=== PATIENT | female | born 1940 | race Caucasian/White ===

== ENCOUNTER → 2017-01-28 | Outpatient (CLI) | payer MEDICARE, OTHER ==
--- NOTE | 2017-01-28 11:09 | REPMRS ---
Patient History The patient states she has not had a clinical breast exam in over a year. Patient is postmenopausal. No known family history of cancer. Digital Woman Screen Mammo: January 28, 2017 - Exam #: [id number] Bilateral CC and MLO view(s) were taken. Technologist: Susannah Serrato, Technologist Prior study comparison: January 17, 2016, digital woman screen mammo performed at [facility] to [facility]. August 31, 2014, digital woman screen mammo performed at [facility] to [facility]. FINDINGS: There are scattered fibroglandular densities. There has been no change in the appearance of the mammogram from the prior studies. There is a mild amount of residual fibroglandular tissue which is fairly symmetric. There is no interval development of dominant mass, architectural distortion, or clustered microcalcification suggestive of malignancy. ASSESSMENT: BI-RADS/ACR category 1 mammogram. Negative. Recommendation Routine screening mammogram in 1 year (for women over age 40). This mammogram was interpreted with the aid of an FDA-approved computer-aided dectection system. Electronically Signed By: Donnell Ernandez MD 01/28/17 [id number]
== END ==
LOC: M WHC 10:35
PROVIDERS: ATTEND Family Medicine
DX: Z12.31 Encounter for screening mammogram for malignant neoplasm of breast (principal)

== ENCOUNTER → 2018-01-29 | Outpatient (CLI) | payer MEDICARE, OTHER | LOC: M WHC 11:25 | DX: Z12.31 Encounter for screening mammogram for malignant neoplasm of breast (principal); Z78.0 Asymptomatic menopausal state | CPT/HCPCS: 77067 ==

== ENCOUNTER 2018-03-10 08:30 | Day surgery (SDC) | payer MEDICARE, OTHER ==
[2018-03-10] MEDS: NS 1,000 ML IV (10:06)
[2018-03-10] MEDS ORDERED: LIDOCAINE 2% INJ 100 MG/5 ML SDV (FOR ANES.) As Ordered (10:44)
[2018-03-10] MEDS ORDERED: PROPOFOL 200 MG/20 ML VIAL As Ordered (10:44)
[2018-03-10] MEDS ORDERED: LIDOCAINE 2% JELLY 30 ML As Ordered (11:00)
== END 2018-03-10 11:24 | disposition home or self-care (01) ==
LOC: M OPP 08:30
DX: K64.5 Perianal venous thrombosis (principal); K64.8 Other hemorrhoids; K57.30 Diverticulosis of large intestine without perforation or abscess without bleeding; I10 Essential (primary) hypertension; E03.9 Hypothyroidism, unspecified; E78.00 Pure hypercholesterolemia, unspecified; M12.9 Arthropathy, unspecified; K21.9 Gastro-esophageal reflux disease without esophagitis; F32.9 Major depressive disorder, single episode, unspecified; Z79.899 Other long term (current) drug therapy; Z79.01 Long term (current) use of anticoagulants; Z86.711 Personal history of pulmonary embolism; Z83.3 Family history of diabetes mellitus; Z90.710 Acquired absence of both cervix and uterus
CPT/HCPCS: 45378

== ENCOUNTER 2019-01-31 19:54 | Emergency (ER) | payer MEDICARE, OTHER ==
[~2019-01-31] VITALS: Ht 167.6 cm; Wt 86.4 kg
[~2019-01-31 19:54] MED LIST changes: -ROSU10TA5 PO; +VITA500T17 PO; -VITA500T53 PO
[2019-01-31] MEDS ORDERED: ROSU10TA5 PO (20:05)
--- NOTE | 2019-01-31 22:16 | REPVR ---
EXAM: US Duplex Left Lower Extremity Veins, Limited EXAM DATE/TIME: 01/31/2019 9:39 PM CLINICAL HISTORY: 78 years old, female; Pain; Leg, lower and other: Knee posterior lower upper thigh to upper calf; Left; Additional info: Leg pain TECHNIQUE: Imaging protocol: Real-time Duplex ultrasound of the Left Lower Extremity with 2-D hartmann scale, color Doppler flow and spectral waveform analysis. Limited exam focused on the left lower extremity veins. COMPARISON: No relevant prior studies available. FINDINGS: Left deep veins: Unremarkable. The common femoral, femoral, proximal profunda femoral and popliteal veins are patent without thrombus. Normal Doppler waveforms. Normal compressibility and/or augmentation response. Left superficial veins: Unremarkable. Saphenofemoral junction is patent without thrombus. Soft tissues: Complex cyst medial popliteal fossa measures 4.2 x 1.6 x 2.8 cm. IMPRESSION: Complex cyst medial popliteal fossa measures 4.2 x 1.6 x 2.8 cm. No DVT. Electronically signed by: Deuce Darden On 01/31/2019 22:16:03 PM
[2019-01-31 22:44] VITALS: BP 137/74
== END 2019-01-31 22:49 | disposition home or self-care (01) ==
LOC: M ED 19:54
DX: M71.22 Synovial cyst of popliteal space [Baker], left knee (principal); M79.605 Pain in left leg; M25.571 Pain in right ankle and joints of right foot; E03.9 Hypothyroidism, unspecified; I10 Essential (primary) hypertension; Z86.711 Personal history of pulmonary embolism; Z86.718 Personal history of other venous thrombosis and embolism; Z79.01 Long term (current) use of anticoagulants; Z79.899 Other long term (current) drug therapy

== ENCOUNTER → 2019-01-31 | Outpatient (CLI) | payer MEDICARE, OTHER ==
[~2019-01-31] MED LIST: CALC600T31 PO; ESCI10TA2 PO; FOLI400T PO; LEVO75TA4 PO; MULT1TAB18 PO; OMEP20CA3 PO; ROSU10TA5 PO; TRIA37.5 PO; VITA100067 PO; VITA500T53 PO; WARF-23 PO
--- NOTE | 2019-02-01 07:15 | REP ---
RIGHT ANKLE SERIES: Four views of the right ankle were performed. On one of the views there is subtle linear lucency in the medial malleolus. I feel this is likely artifactual and not indicative of a fracture. There appears to be mild lateral soft tissue swelling. I see no other evidence of acute fracture or dislocation. The ankle mortise is anatomic. IMPRESSION: Subtle linear lucency, medial malleolus is likely artifactual and is likely not indicative of a fracture. Please correlate clinically. Electronically Signed by Donnell Ernandez MD 02/01/2019 09:21 A
== END ==
LOC: M ADAMS 12:38
PROVIDERS: ATTEND Physician Assistant Medical
DX: M25.571 Pain in right ankle and joints of right foot (principal)

== ENCOUNTER → 2019-02-23 | Outpatient (CLI) | payer MEDICARE, OTHER ==
[~2019-02-23] MED LIST changes: +ROSU10TA5 PO
--- NOTE | 2019-02-23 15:21 | REPMRS ---
Patient History The patient states she has not had a clinical breast exam in over a year. Patient is postmenopausal. No known family history of cancer. No Hormone Replacement Therapy Digital Woman Screen Mammo: February 23, 2019 - Exam #: [id number] Bilateral CC and MLO view(s) were taken. Technologist: Susannah Serrato, Technologist Prior study comparison: January 29, 2018, digital woman screen mammo performed at [facility]. January 28, 2017, digital woman screen mammo performed at [facility]. January 17, 2016, digital woman screen mammo performed at [facility]. FINDINGS: The breast tissue is almost entirely fat. There has been no change in the appearance of the mammogram from the prior studies. There is no interval development of dominant mass, architectural distortion, or clustered microcalcification typical of malignancy. 3-D tomosynthesis shows no additional findings. Assessment: BI-RADS/ACR category 1 mammogram. Negative Mammogram. Recommendation Routine screening mammogram of both breasts in 1 year (for women over age 40). This patient's Lifetime Breast Cancer RIsk is estimated at 1.3 %. This mammogram was interpreted with the aid of an FDA-approved computer-aided dectection system. Electronically Signed By: Julio Patel MD 02/23/19 [id number]
== END ==
LOC: M WHC 14:04
PROVIDERS: ATTEND Family Medicine
DX: Z12.31 Encounter for screening mammogram for malignant neoplasm of breast (principal)

== ENCOUNTER 2019-05-05 12:43 | Inpatient (IN) | payer MEDICARE, OTHER ==
[~2019-05-05] VITALS: Ht 167.6 cm; Wt 88.2 kg
[2019-05-05] MEDS ORDERED: OSTETAB2 PO (12:55)
[2019-05-05] MEDS ORDERED: ACETAMINOPHEN 500 MG TAB PO ONE (14:00)
--- NOTE | 2019-05-05 14:24 | REP ---
Clinical: Status post fall with pain. Technique: AP, lateral, bilateral oblique and coned-down views of the lumbosacral spine. Comparison: MRI dated 03/23/2018. Findings: There is a compression fracture of T12 with approximately 50% loss of vertebral body height primarily involving the lower half of the vertebral body. No obvious retropulsed fracture fragment is appreciated and alignment is maintained. Advanced degenerative disc osteophyte complex at L4-5 and L5-L1 includes endplate sclerosis, hypertrophic facet changes and osteophyte formation. Remainder examination demonstrates moderate multilevel degenerative changes. Impression: 1. Compression fracture of T12 of indeterminate age. 2. Moderate/advanced multilevel degenerative spondylosis. Electronically Signed by Matthew Mazariegos MD 05/05/2019 02:17 P
[2019-05-05 15:15] LABS: INR 2.04; PROTHROMBIN TIME 22.8 SECONDS (11.8-14.0)
[2019-05-05] MEDS ORDERED: LIDOCAINE 5% (LIDODERM) PATCH TD ONE (15:15)
[2019-05-05] MEDS ORDERED: oxyCODONE 5MG TAB PO ONE (15:15)
[2019-05-05] MEDS ORDERED: MORPHINE 10 MG/ML 1ML VIAL (J2270) IM ONE (17:15)
[2019-05-05] MEDS ORDERED: VITA10002 PO (17:43)
[2019-05-05] MEDS ORDERED: OYST1TAB PO (17:43)
[2019-05-05] MEDS ORDERED: VITAD1000T PO (17:43)
[2019-05-05] MEDS ORDERED: MULT-40 PO (17:43)
[2019-05-05] MEDS: NS 1,000 ML IV SCH (18:45)
--- NOTE | 2019-05-05 18:50 | HPEPDOC ---
[facility] Medical History & Physical Date of Admission May 05, 2019 Date of Service: May 05, 2019 History and Physical CHIEF COMPLAINT: s/p fall, intractable low back pain HISTORY OF PRESENT ILLNESS: Pt is 78 y/o F with PMHx of bilateral knee osteoarthritis, Hx of PE on AC by Warfarin. Pt fell at home today. She states that she fell on her back due to loosing balance. Subsequently she was not able to stand due to extreme pain. SHe denies LOC, dizziness, vertigo or lightheadedness. Denies any similar episode in the past. In the ED found to be in extreme pain with unremarkable lumbar Xray except for old T12 compression fracture. Upon my evaluation she is not moving in bed due to pain, Able to move LE no bowel or bladder incontinence. Received 8mg morphine in the ED with moderate effect. Pain is 10/10 no radiation no sensory motor deficit. Denies any N/V any respiratory distress. PAST MEDICAL HISTORY: as above PAST SURGICAL HISTORY: denies SOCIAL HISTORY: Pt is pleasant lady with family support at bedside, lives at home FAMILY HISTORY: denies ALLERGIES: Please see below. REVIEW OF SYSTEMS: 10 point negative except as above HOME MEDICATIONS: Please see below. PHYSICAL EXAMINATION: GENERAL APPEARANCE: AAOx3 moderate to severe distress due to pain HEENT: RAMIRO, EOMI no icterus no JVD no trauma CARDIOVASCULAR: S1 S2 no murmur LUNGS: clear bilat ABDOMEN: soft NT ND MUSCULOSKELETAL: tenderness on lumbar sacral spines NEUROLOGICAL: intact PSYCHIATRIC: mood affect appropriate LABORATORY DATA: See below. IMAGING: MICROBIOLOGY: Please see below. Vital Signs Date Time Temp Pulse Resp B/P (MAP) Pulse Ox O2 Delivery O2 Flow Rate FiO2 05/05/19 20:50 98.3 74 17 132/72 (92) 93 05/05/19 20:28 98.6 05/05/19 20:16 78 18 130/64 (86) 94 Room Air 05/05/19 19:47 18 05/05/19 18:00 68 18 116/60 (78) 93 Room Air 05/05/19 18:00 18 05/05/19 17:31 74 18 133/64 94 05/05/19 17:30 74 18 133/64 (87) 93 Room Air 05/05/19 17:24 Room Air 05/05/19 15:18 77 18 140/65 05/05/19 14:30 76 18 140/65 (90) 91 Room Air 05/05/19 14:15 75 18 156/90 (112) 92 Room Air 05/05/19 14:12 76 18 170/75 (106) 92 Room Air 05/05/19 13:45 82 18 160/83 (108) 92 Room Air 05/05/19 13:30 79 18 154/75 (101) 93 Room Air 05/05/19 13:15 77 18 147/74 (98) 95 Room Air 05/05/19 13:00 83 18 150/78 (102) 94 Room Air 05/05/19 12:53 98.7 05/05/19 12:47 80 18 143/68 93 Room Air Laboratory Tests 05/05/19 14:33: Prothrombin Time 22.8H, Prothromb Time International Ratio 2.04 05/05/19 19:28: Prothrombin Time 23.0H, Prothromb Time International Ratio 2.06, White Blood Count 8.7, Red Blood Count 4.00, Hemoglobin 12.8, Hematocrit 38.5, Mean Corpuscular Volume 96.3H, Mean Corpuscular Hemoglobin 32.0, Mean Corpuscular Hemoglobin Concent 33.2, Red Cell Distribution Width 14.3, Platelet Count 194, Neutrophils (%) (Auto) 81.3H, Lymphocytes (%) (Auto) 12.7L, Monocytes (%) (Auto) 5.5H, Eosinophils (%) (Auto) 0.1, Basophils (%) (Auto) 0.2, Neutrophils # (Auto) 7.1, Lymphocytes # (Auto) 1.1L, Monocytes # (Auto) 0.5, Eosinophils # (Auto) 0.0, Basophils # (Auto) 0.0, Immature Granulocyte % (Auto) 0.2, Nucleated Red Blood Cells % (auto) 0.0, Blood Urea Nitrogen 12, Creatinine 0.68, Sodium Level 140, Potassium Level 3.8, Chloride Level 106, Carbon Dioxide Level 30, Calcium Level 9.1, Aspartate Amino Transf (AST/SGOT) 26, Alanine Aminotransferase (ALT/SGPT) 26, Alkaline Phosphatase 75, Total Bilirubin 0.6, Total Protein 6.6, Albumin 3.3, Anion Gap 4L, Glomerular Filtration Rate > 60.0, Fasting Glucose 107H, Albumin/Globulin Ratio 1.00 Current Medications Medications (Trade) Dose Ordered Sig/Queenie Route PRN Reason Start Time Stop Time Status Last Admin Dose Admin Ketorolac Tromethamine (ToRADol) 30 mg Q8HP PRN IV pain 05/05/19 18:45 05/10/19 18:44 05/05/19 22:40 30 MG Sodium Chloride 1,000 ml @ 100 mls/hr Q10H IV 05/05/19 18:45 05/05/19 18:45 100 MLS/HR A/P 1-S/P Fall secondary to loosing balance, no syncope 2-Intractable lumbar spine pain Pending CT Lumbar Spine Ketorolac 30mg PRN IV Hydration Cont home meds DVT prophylaxis Vital Signs Vital Signs Date Time Temp Pulse Resp B/P (MAP) Pulse Ox O2 Delivery O2 Flow Rate FiO2 05/05/19 18:00 68 18 116/60 (78) 93 Room Air 05/05/19 12:53 98.7 Laboratory Data Labs 24H Laboratory Tests 2 05/05/19 14:33: Prothrombin Time 22.8H, Prothromb Time International Ratio 2.04 Home Medications Scheduled Calcium Carbonate (Calcium) 500 Mg Tablet, 500 MG PO QHS Cyanocobalamin (Vitamin B-12) (Vitamin B-12) 1,000 Mcg Tablet, 1,000 MCG PO QHS Escitalopram Oxalate (Escitalopram Oxalate) 10 Mg Tab, 10 MG PO DAILY Folic Acid (Folic Acid) 400 Mcg Tab, 400 MCG PO DAILY Glucosam/Davon-Msm1/C/Brian/Bosw (Osteo Bi-Flex Caplet) 1 Each Tablet, 2 TAB PO DAILY Levothyroxine Sodium (Levothyroxine Sodium) 75 Mcg Tab, 75 MCG PO DAILY Multivitamin (Multivitamins) 1 Each Tablet, 1 TAB PO QHS Omeprazole (Omeprazole) 20 Mg Cap, 20 MG PO DAILY Rosuvastatin Calcium (Rosuvastatin Calcium) 10 Mg Tab, 10 MG PO DAILY Triamterene/Hydrochlorothiazid (Triamterene-Hctz 37.5-25 mg Tb) 1 Tab Tab, 0.5 TAB PO DAILY Vitamin D (Vitamin D3) 1,000 Unit Tablet, 1,000 UNITS PO QHS Warfarin Sodium (Warfarin Sodium) 5 Mg Tab, 5 MG PO DAILY TAKES AT 1200 Allergies Coded Allergies: No Known Allergies (Verified , 03/04/18) A-FIB/CHADSVASC A-FIB History Current/History of A-Fib/PAF?: No JESSICA TINEO MD May 05, 2019 18:50
--- NOTE | 2019-05-05 19:29 | REPVR ---
EXAM: CT Lumbar Spine Without Contrast EXAM DATE/TIME: 05/05/2019 6:54 PM CLINICAL HISTORY: 78 years old, female; Injury or trauma; Fall; Initial encounter; Blunt trauma (contusions or hematomas); Additional info: S/P fall TECHNIQUE: Imaging protocol: Axial computed tomography images of the lumbar spine without intravenous contrast. Coronal and sagittal reformatted images were created and reviewed. Radiation optimization: All CT scans at this facility use at least one of these dose optimization techniques: automated exposure control; mA and/or kV adjustment per patient size (includes targeted exams where dose is matched to clinical indication); or iterative reconstruction. COMPARISON: CR Spine. Lumbosacral, complete 05/05/2019 1:58 PM FINDINGS: Vertebrae: Acute compression fracture of T12 with retropulsion of fractured elements into the spinal canal reducing the anterior posterior diameter to 11.5 mm with mild cord impingement. Dextroscoliosis lower lumbar spine. 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 Discs/Spinal canal/Neural foramina: No spinal stenosis at L5-S1. Bilateral facet joint arthropathy. There is a mild to moderate central spinal stenosis at L4-5 secondary to diffuse annular bulging, marginal vertebral osteophytes, thickened ligamentum flavum and facet joint arthropathy. There is a moderate central spinal stenosis at L3-4 secondary to diffuse annular bulging, thickened ligamentum flavum and facet joint arthropathy. There is a mild to moderate central spinal stenosis at L2-3 secondary to diffuse annular bulging, thickened ligamentum flavum and facet joint arthropathy. There is a moderate central spinal stenosis at L1-2 secondary to diffuse annular bulging, thickened ligamentum flavum and facet joint arthropathy. Soft tissues: Unremarkable. IMPRESSION: Acute compression fracture of T12 with retropulsion of fractured elements into the spinal canal reducing the anterior posterior diameter to 11.5 mm with mild cord impingement. Multilevel spinal stenoses, moderate at L1-2, mild to moderate at L2-3, moderate at L3-4, and mild to moderate at L4-5. Electronically signed by: Deuce Darden On 05/05/2019 19:29:18 PM
[2019-05-05 19:36] LABS: BASO % 0.2 % (0.0-1.0); EOS % 0.1 % (0.0-3.0); HEMATOCRIT 38.5 % (36.0-47.0); HEMOGLOBIN 12.8 g/dl (12.0-15.5); LYMPH # 1.1 10^3/uL (1.5-4.5); LYMPH % 12.7 % (24.0-44.0); MEAN CORPUSCULAR HGB CONC 33.2 g/dl (32.0-36.5); MEAN CORPUSCULAR VOLUME 96.3 fl (80.0-96.0); MONO # 0.5 10^3/uL (0.0-0.8); MONO % 5.5 % (0.0-5.0); NEUTROPHILS # 7.1 10^3/uL (1.8-7.7); NEUTROPHILS % 81.3 % (36.0-66.0); PLATELET COUNT, AUTOMATED 194 10^3/uL (150-450); WHITE BLOOD COUNT 8.7 10^3/uL (4.0-10.0)
[2019-05-05 19:47] LABS: INR 2.06
[2019-05-05 20:05] LABS: ALBUMIN 3.3 GM/DL (3.2-5.2); ALT/SGPT 26 U/L (12-78); BILIRUBIN,TOTAL 0.6 MG/DL (0.2-1.0); BLOOD UREA NITROGEN 12 MG/DL (7-18); CALCIUM LEVEL 9.1 MG/DL (8.8-10.2); CARBON DIOXIDE LEVEL 30 MEQ/L (21-32); CHLORIDE LEVEL 106 MEQ/L (98-107); CREATININE FOR GFR 0.68 MG/DL (0.55-1.30); GLOMERULAR FILTRATION RATE > 60.0 (>32); GLUCOSE, FASTING 107 MG/DL (70-100); POTASSIUM SERUM 3.8 MEQ/L (3.5-5.1); SODIUM LEVEL 140 MEQ/L (136-145); TOTAL PROTEIN 6.6 GM/DL (6.4-8.2)
[2019-05-05 20:50] VITALS: BP 132/72
[2019-05-05] MEDS: KETOROLAC 30 MG/ML VIAL (J1885) IV PRN (22:40)
[2019-05-06] MEDS: LEVOTHYROXINE 75MCG TABLET (0.075MG) PO SCH (05:39)
[2019-05-06] MEDS: NS 1,000 ML IV SCH (05:41)
[2019-05-06 06:00] VITALS: BP 137/68
[2019-05-06 07:23] LABS: BASO % 0.5 % (0.0-1.0); EOS # 0.1 10^3/uL (0.0-0.50); EOS % 1.7 % (0.0-3.0); HEMATOCRIT 35.2 % (36.0-47.0); HEMOGLOBIN 11.8 g/dl (12.0-15.5); LYMPH # 1.2 10^3/uL (1.5-4.5); LYMPH % 18.1 % (24.0-44.0); MEAN CORPUSCULAR HEMOGLOBIN 32.2 pg (27.0-33.0); MEAN CORPUSCULAR HGB CONC 33.5 g/dl (32.0-36.5); MEAN CORPUSCULAR VOLUME 95.9 fl (80.0-96.0); MONO # 0.5 10^3/uL (0.0-0.8); MONO % 7.9 % (0.0-5.0); NEUTROPHILS # 4.5 10^3/uL (1.8-7.7); NEUTROPHILS % 71.5 % (36.0-66.0); PLATELET COUNT, AUTOMATED 171 10^3/uL (150-450); RED BLOOD COUNT 3.67 10^6/uL (4.00-5.40); WHITE BLOOD COUNT 6.3 10^3/uL (4.0-10.0)
[2019-05-06 07:37] LABS: INR 2.08; PROTHROMBIN TIME 23.1 SECONDS (11.8-14.0)
[2019-05-06 07:54] LABS: ALT/SGPT 21 U/L (12-78); BILIRUBIN,TOTAL 0.7 MG/DL (0.2-1.0); BLOOD UREA NITROGEN 16 MG/DL (7-18); CALCIUM LEVEL 8.7 MG/DL (8.8-10.2); CARBON DIOXIDE LEVEL 27 MEQ/L (21-32); CHLORIDE LEVEL 108 MEQ/L (98-107); CREATININE FOR GFR 0.73 MG/DL (0.55-1.30); GLOMERULAR FILTRATION RATE > 60.0 (>32); GLUCOSE, FASTING 111 MG/DL (70-100); POTASSIUM SERUM 3.6 MEQ/L (3.5-5.1); SODIUM LEVEL 141 MEQ/L (136-145); TOTAL PROTEIN 5.9 GM/DL (6.4-8.2)
[2019-05-06] MEDS: ESCITALOPRAM OXALATE 10 MG TAB (LEXAPRO) PO SCH (08:31)
[2019-05-06] MEDS: ROSUVASTATIN 10 MG TAB (CRESTOR) PO SCH (08:31)
[2019-05-06] MEDS: OMEPRAZOLE 20 MG CAP PO SCH (08:31)
[2019-05-06] MEDS: KETOROLAC 30 MG/ML VIAL (J1885) IV PRN ×2 (08:32→21:24)
[2019-05-06] MEDS: CALCITONIN NASAL SPRAY 3.7 ML BTL SCH (08:32)
[2019-05-06] MEDS ORDERED: DYAZIDE 37.5/25 CAP (TRIAM/HCTZ) PO SCH (09:00)
[2019-05-06] MEDS: PERCOCET 5MG/325MG TAB PO PRN ×3 (10:46→19:34)
[2019-05-06] MEDS: WARFARIN SOD 5 MG TAB PO SCH ×2 (12:00→12:26)
[2019-05-06] MEDS ORDERED: WARF05TA PO ×2 (12:38)
[2019-05-06 14:00] VITALS: BP 135/69
[2019-05-06] MEDS: WARFARIN SOD 2.5 MG TAB PO SCH (14:17)
--- NOTE | 2019-05-06 15:07 | CR ---
DATE OF CONSULTATION: 05/06/2019 PROVIDER REQUESTING CONSULTATION: Dr. Katia Rodriguez CHIEF COMPLAINT: Intractable low back pain status post fall. HISTORY: Patient is a pleasant, 78-year-old female presenting to emergency room with low back pain status post fall. Patient was reaching into her closet to grab shoes. She felt dizzy and fell landing on her back. She is otherwise asymptomatic. She does not complain of any radicular symptoms. No numbness, tingling, or weakness in bilateral lower extremities. No problems with bowel or bladder control issues. CHRONIC MEDICAL CONDITIONS: History of pulmonary embolism. Bilateral knee osteoarthritis. Gastroesophageal reflux disease. Hyperlipidemia. PAST SURGICAL HISTORY: None. FAMILY HISTORY: Noncontributory. CURRENT MEDICATIONS: - calcium carbonate 500 mg daily - vitamin B12 1000 mcg daily - escitalopram 10 mg daily - folic acid 400 mcg daily - glucosamine and chondroitin 2 tablets daily - levothyroxine 75 mcg daily - daily multivitamin - omeprazole 200 mg daily - simvastatin 10 mg daily - triamterene hydrochlorothiazide 37/25 mg daily - vitamin D 1000 units daily - Coumadin 5 mg daily ALLERGIES: There are NO KNOWN DRUG ALLERGIES. REVIEW OF SYSTEMS: Patient denies fevers, chills, nausea, vomiting, or diarrhea. She denies chest pain, shortness of breath, lightheadedness, dizziness, or headaches. She denies any problems with bowel or bladder control issues. No pain, numbness, tingling, or weakness in the bilateral lower extremities. The patient does have mid to low back pain status post fall. PHYSICAL EXAMINATION: General: Well-nourished, well-developed female, in no apparent distress. She is alert, oriented, and cooperative. Mood and affect are appropriate. Vital signs: Blood pressure 116/60, heart rate 68, respirations 18, pulse oximetry 93% on room air, temperature 98.7 degrees. Heart: Regular rate and rhythm. Lungs: Clear to auscultation bilaterally. Abdomen: Soft, nontender to palpation. Bowel sounds present. Musculoskeletal: Patient does have tenderness to palpation at the approximate level of the her T12 vertebra midline. She has intact range of motion and 5/5 strength of the bilateral lower extremities. Her EHL is intact. Her deep tendon reflexes at the knee and ankle are 2+ and equal bilaterally. Her dorsalis pedis pulse is palpable. Calves are soft, nontender to palpation with no palpable cords noted. Capillary refill is brisk and bilateral lower extremity sensation is intact. IMAGING STUDIES: CT scan was completed and it does reveal an acute compression fracture at the T12 vertebra with retropulsion of the fracture elements into the spinal canal reducing the AP diameter to 11.5 mm with mild cord impingement. There is also multilevel spinal stenosis moderate at L1-2, mild to moderate at L2-3, moderate at L3-4, and mild to moderate at L4-5. IMPRESSION: Acute T12 compression fracture with retropulsion of the fracture elements into the spinal canal reducing the AP diameter to 11.5 mm with mild cord impingement. PLAN: Patient is an 78-year-old female with a T12 compression fracture. There is less than 30% canal compromise. Her sensory, motor, and neurovascular exam is normal. Recommendation will be for a thoracolumbosacral orthosis (TLSO) brace. Continue pain management and deep venous thrombosis (DVT) prophylaxis. We will have the patient followup with Dr. Mccauley in our office in approximately 3 days after discharge, or sooner if there is any increase in symptoms or red flag symptoms. DAVID
--- NOTE | 2019-05-06 17:35 | IPNPDOC ---
Text Note Date of Service The patient was seen on 05/06/19. NOTE Pt was seen and examined at bedside. Pt continues to have low back pain. No sensory motor deficit. Result of lumbar spine CT was reviewed with neurosurgeon Dr. Mccauley who recommended noninvasive management at this point. PHE: GENERAL APPEARANCE: AAOx3 moderate to severe distress due to pain HEENT: RAMIRO, EOMI no icterus no JVD no trauma CARDIOVASCULAR: S1 S2 no murmur LUNGS: clear bilat ABDOMEN: soft NT ND MUSCULOSKELETAL: tenderness on lumbar sacral spines NEUROLOGICAL: intact PSYCHIATRIC: mood affect appropriate Vital Signs Date Time Temp Pulse Resp B/P (MAP) Pulse Ox O2 Delivery O2 Flow Rate FiO2 05/06/19 20:04 16 05/06/19 19:34 18 05/06/19 15:11 18 05/06/19 14:00 98.8 76 19 135/69 (91) 93 05/06/19 10:46 18 05/06/19 06:00 98.5 78 20 137/68 (91) 91 Intake & Output 05/07/19 06:00 Intake Total 350 ml Output Total 550 ml Balance -200 ml Laboratory Tests 05/06/19 06:53: White Blood Count 6.3, Red Blood Count 3.67L, Hemoglobin 11.8L, Hematocrit 35.2L, Mean Corpuscular Volume 95.9, Mean Corpuscular Hemoglobin 32.2, Mean Corpuscular Hemoglobin Concent 33.5, Red Cell Distribution Width 14.6H, Platelet Count 171, Neutrophils (%) (Auto) 71.5H, Lymphocytes (%) (Auto) 18.1L, Monocytes (%) (Auto) 7.9H, Eosinophils (%) (Auto) 1.7, Basophils (%) (Auto) 0.5, Neutrophils # (Auto) 4.5, Lymphocytes # (Auto) 1.2L, Monocytes # (Auto) 0.5, Eosinophils # (Auto) 0.1, Basophils # (Auto) 0.0, Immature Granulocyte % (Auto) 0.3, Nucleated Red Blood Cells % (auto) 0.0, Prothrombin Time 23.1H, Prothromb Time International Ratio 2.08, Blood Urea Nitrogen 16, Creatinine 0.73, Sodium Level 141, Potassium Level 3.6, Chloride Level 108H, Carbon Dioxide Level 27, Calcium Level 8.7L, Aspartate Amino Transf (AST/SGOT) 19, Alanine Aminotransferase (ALT/SGPT) 21, Alkaline Phosphatase 69, Total Bilirubin 0.7, Total Protein 5.9L, Albumin 3.0L, Anion Gap 6L, Glomerular Filtration Rate > 60.0, Fasting Glucose 111H, Albumin/Globulin Ratio 1.03 Current Medications Medications (Trade) Dose Ordered Sig/Queenie Route PRN Reason Start Time Stop Time Status Last Admin Dose Admin Calcitonin Kenvir (Miacalcin (Fortical)) 1 sprays DAILY NA 05/06/19 09:00 05/06/19 08:32 1 SPRAYS Escitalopram Oxalate (Lexapro) 10 mg DAILY PO 05/06/19 09:00 05/06/19 08:31 10 MG Ketorolac Tromethamine (ToRADol) 30 mg Q8HP PRN IV pain 05/05/19 18:45 05/10/19 18:44 05/06/19 21:24 30 MG Levothyroxine Sodium (Synthroid) 75 mcg DAILY@0600 PO 05/06/19 06:00 05/06/19 05:39 75 MCG Omeprazole (PriLOSEC) 20 mg DAILY PO 05/06/19 09:00 05/06/19 08:31 20 MG Oxycodone/ Acetaminophen (Percocet 5mg/ 325mg Tablet) 1 tab Q4HP PRN PO MILD/MODERATE PAIN (PS 1-7) 05/06/19 10:30 05/06/19 19:34 1 TAB Patient Own Medication (Patient'S Own Med) DOSE = 1/2 TAB DAILY PO 05/06/19 09:00 05/06/19 18:38 1 EA Rosuvastatin Calcium (Crestor) 10 mg DAILY PO 05/06/19 09:00 05/06/19 08:31 10 MG Warfarin Sodium (Coumadin) 2.5 mg MoTh@1200 PO 05/06/19 12:00 05/06/19 14:17 2.5 MG IMPRESSION: Acute compression fracture of T12 with retropulsion of fractured elements into the spinal canal reducing the anterior posterior diameter to 11.5 mm with mild cord impingement. Multilevel spinal stenoses, moderate at L1-2, mild to moderate at L2-3, moderate at L3-4, and mild to moderate at L4-5. A/P 1-S/P Fall secondary to loosing balance, no syncope 2-Intractable lumbar spine pain Ketorolac 30mg PRN IV Hydration DC Add percocet Lumbar spine CT reviewed Neurosurgery on board, recommendations appreciated Cont home meds DVT prophylaxis VS,Fishbone, I+O VS, Fishbone, I+O Laboratory Tests 05/05/19 19:28 Red Blood Count 4.00, Mean Corpuscular Volume 96.3 H, Mean Corpuscular Hemoglobin 32.0, Mean Corpuscular Hemoglobin Concent 33.2, Red Cell Distribution Width 14.3, Neutrophils (%) (Auto) 81.3 H, Lymphocytes (%) (Auto) 12.7 L, Monocytes (%) (Auto) 5.5 H, Eosinophils (%) (Auto) 0.1, Basophils (%) (Auto) 0.2, Neutrophils # (Auto) 7.1, Lymphocytes # (Auto) 1.1 L, Monocytes # (Auto) 0.5, Eosinophils # (Auto) 0.0, Basophils # (Auto) 0.0, Calcium Level 9.1, Aspartate Amino Transf (AST/SGOT) 26, Alanine Aminotransferase (ALT/SGPT) 26, Alkaline Phosphatase 75, Total Bilirubin 0.6, Total Protein 6.6, Albumin 3.3 05/06/19 06:53 Red Blood Count 3.67 L, Mean Corpuscular Volume 95.9, Mean Corpuscular Hemoglobin 32.2, Mean Corpuscular Hemoglobin Concent 33.5, Red Cell Distribution Width 14.6 H, Neutrophils (%) (Auto) 71.5 H, Lymphocytes (%) (Auto) 18.1 L, Monocytes (%) (Auto) 7.9 H, Eosinophils (%) (Auto) 1.7, Basophils (%) (Auto) 0.5, Neutrophils # (Auto) 4.5, Lymphocytes # (Auto) 1.2 L, Monocytes # (Auto) 0.5, Eosinophils # (Auto) 0.1, Basophils # (Auto) 0.0, Calcium Level 8.7 L, Aspartate Amino Transf (AST/SGOT) 19, Alanine Aminotransferase (ALT/SGPT) 21, Alkaline Phosphatase 69, Total Bilirubin 0.7, Total Protein 5.9 L, Albumin 3.0 L Vital Signs Date Time Temp Pulse Resp B/P (MAP) Pulse Ox O2 Delivery O2 Flow Rate FiO2 05/06/19 15:41 18 05/06/19 06:00 98.5 78 137/68 (91) 91 05/05/19 20:16 Room Air I&O- Last 24 Hours up to 6 AM 05/06/19 06:00 Intake Total 160 ml Output Total 350 ml Balance -190 ml JESSICA TINEO MD May 06, 2019 17:35
[2019-05-06] MEDS: MAXZIDE PO SCH (18:38)
[2019-05-06 22:00] VITALS: BP 142/69
[2019-05-07] MEDS: LEVOTHYROXINE 75MCG TABLET (0.075MG) PO SCH (05:21)
[2019-05-07] MEDS: PERCOCET 5MG/325MG TAB PO PRN ×2 (05:22→16:15)
[2019-05-07 06:00] VITALS: BP 159/91
[2019-05-07] MEDS: SENOKOT S TAB PO SCH ×2 (09:40→21:00)
[2019-05-07] MEDS: ROSUVASTATIN 10 MG TAB (CRESTOR) PO SCH (09:40)
[2019-05-07] MEDS: ESCITALOPRAM OXALATE 10 MG TAB (LEXAPRO) PO SCH (09:40)
[2019-05-07] MEDS: MOM 30ML SUSPENSION UDC PO SCH (09:40)
[2019-05-07] MEDS: MAXZIDE PO SCH (09:41)
[2019-05-07] MEDS: OMEPRAZOLE 20 MG CAP PO SCH (09:41)
[2019-05-07] MEDS: MIRALAX *UNIT DOSE* 17GM PACKET PO SCH (09:41)
[2019-05-07] MEDS: CALCITONIN NASAL SPRAY 3.7 ML BTL SCH (09:42)
[2019-05-07] MEDS: KETOROLAC 30 MG/ML VIAL (J1885) IV PRN ×2 (09:44→20:58)
[2019-05-07] MEDS ORDERED: MAGNESIUM CITRATE 300 ML BTL PO ONE (10:00)
[2019-05-07] MEDS: WARFARIN SOD 5 MG TAB PO SCH (13:35)
[2019-05-07 14:00] VITALS: BP 162/87
[2019-05-07 22:00] VITALS: BP 151/82
--- NOTE | 2019-05-07 23:03 | IPNPDOC ---
Text Note Date of Service The patient was seen on 05/07/19. NOTE Pt was seen and examined at bedside. Ortho service on board to provide with lumbothoracic brace. Pt states pain is better controlled on current analgesic regimen however still pain present to moderately degree. Denies any motor sensory loss. Denies any incontinence. PHE: GENERAL APPEARANCE: AAOx3 moderate to severe distress due to pain HEENT: RAMIRO, EOMI no icterus no JVD no trauma CARDIOVASCULAR: S1 S2 no murmur LUNGS: clear bilat ABDOMEN: soft NT ND MUSCULOSKELETAL: tenderness on lumbar sacral spines NEUROLOGICAL: intact PSYCHIATRIC: mood affect appropriate Vital Signs Date Time Temp Pulse Resp B/P (MAP) Pulse Ox O2 Delivery O2 Flow Rate FiO2 05/07/19 16:45 18 05/07/19 16:15 16 05/07/19 14:00 98.5 72 18 162/87 (112) 91 05/07/19 06:00 99.1 76 18 159/91 (113) 86 05/07/19 05:22 18 Intake & Output 05/07/19 06:00 Intake Total 350 ml Output Total 1250 ml Balance -900 ml Current Medications Medications (Trade) Dose Ordered Sig/Queenie Route PRN Reason Start Time Stop Time Status Last Admin Dose Admin Calcitonin [place] (Miacalcin (Fortical)) 1 sprays DAILY NA 05/06/19 09:00 05/07/19 09:42 1 SPRAYS Escitalopram Oxalate (Lexapro) 10 mg DAILY PO 05/06/19 09:00 05/07/19 09:40 10 MG Ketorolac Tromethamine (ToRADol) 30 mg Q8HP PRN IV pain 05/05/19 18:45 05/10/19 18:44 05/07/19 20:58 30 MG Levothyroxine Sodium (Synthroid) 75 mcg DAILY@0600 PO 05/06/19 06:00 05/07/19 05:21 75 MCG Magnesium Hydroxide (Milk Of Magnesia) 30 ml DAILY PO 05/07/19 09:00 05/07/19 09:40 30 ML Omeprazole (PriLOSEC) 20 mg DAILY PO 05/06/19 09:00 05/07/19 09:41 20 MG Oxycodone/ Acetaminophen (Percocet 5mg/ 325mg Tablet) 1 tab Q4HP PRN PO MILD/MODERATE PAIN (PS 1-7) 05/06/19 10:30 05/07/19 16:15 1 TAB Patient Own Medication (Patient'S Own Med) DOSE = 1/2 TAB DAILY PO 05/06/19 09:00 05/07/19 09:41 1 EA Polyethylene Glycol (Miralax) 1 pkt DAILY PO 05/07/19 09:00 05/07/19 09:41 1 PKT Rosuvastatin Calcium (Crestor) 10 mg DAILY PO 05/06/19 09:00 05/07/19 09:40 10 MG Senna/Docusate Sodium (Senokot S) 1 tab BID PO 05/07/19 09:00 05/07/19 09:40 1 TAB Warfarin Sodium (Coumadin) 5 mg SuTuWeFrSa@1200 PO 05/07/19 12:00 05/07/19 13:35 5 MG Acute compression fracture of T12 with retropulsion of fractured elements into the spinal canal reducing the anterior posterior diameter to 11.5 mm with mild cord impingement. Multilevel spinal stenoses, moderate at L1-2, mild to moderate at L2-3, moderate at L3-4, and mild to moderate at L4-5. A/P 1-S/P Fall secondary to loosing balance, no syncope 2-Intractable lumbar spine pain Ketorolac 30mg PRN IV Hydration DC Add percocet Lumbar spine CT reviewed Neurosurgery on board, recommendations appreciated Awaiting Ortho device to support lumbothoracic area Cont home meds DVT prophylaxis VS,Fishbone, I+O VS, Fishbone, I+O Vital Signs Date Time Temp Pulse Resp B/P (MAP) Pulse Ox O2 Delivery O2 Flow Rate FiO2 05/07/19 16:45 18 05/07/19 14:00 98.5 72 162/87 (112) 91 05/05/19 20:16 Room Air I&O- Last 24 Hours up to 6 AM 05/07/19 06:00 Intake Total 350 ml Output Total 1250 ml Balance -900 ml JESSICA TINEO MD May 07, 2019 23:03
[2019-05-08] MEDS: PERCOCET 5MG/325MG TAB PO PRN ×4 (04:03→21:13)
[2019-05-08] MEDS: LEVOTHYROXINE 75MCG TABLET (0.075MG) PO SCH (05:35)
[2019-05-08] MEDS: KETOROLAC 30 MG/ML VIAL (J1885) IV PRN (05:36)
[2019-05-08 06:00] VITALS: BP 127/64
[2019-05-08] MEDS: MIRALAX *UNIT DOSE* 17GM PACKET PO SCH (08:36)
[2019-05-08] MEDS: ESCITALOPRAM OXALATE 10 MG TAB (LEXAPRO) PO SCH (08:37)
[2019-05-08] MEDS: MOM 30ML SUSPENSION UDC PO SCH (08:37)
[2019-05-08] MEDS: OMEPRAZOLE 20 MG CAP PO SCH (08:37)
[2019-05-08] MEDS: CALCITONIN NASAL SPRAY 3.7 ML BTL SCH (08:37)
[2019-05-08] MEDS: SENOKOT S TAB PO SCH ×2 (08:37→20:52)
[2019-05-08] MEDS: ROSUVASTATIN 10 MG TAB (CRESTOR) PO SCH (08:37)
[2019-05-08] MEDS: MAXZIDE PO SCH (08:38)
[2019-05-08 09:30] VITALS: BP 149/85
[2019-05-08] MEDS: WARFARIN SOD 5 MG TAB PO SCH (11:43)
[2019-05-08 13:30] VITALS: BP 151/85
[2019-05-08 22:00] VITALS: BP 129/68
--- NOTE | 2019-05-08 23:14 | IPNPDOC ---
Text Note Date of Service The patient was seen on 05/08/19. NOTE Pt was seen and examined at bedside. Ortho service on board to provide with lumbothoracic brace. Pt states pain is better controlled on current analgesic regimen however still pain present to moderately degree. Denies any motor sensory loss. Denies any incontinence. PHE: GENERAL APPEARANCE: AAOx3 pleasant mood today HEENT: RAMIRO, EOMI no icterus no JVD no trauma CARDIOVASCULAR: S1 S2 no murmur LUNGS: clear bilat ABDOMEN: soft NT ND MUSCULOSKELETAL: tenderness on lumbar sacral spines continues since last seen NEUROLOGICAL: LE motor bilat intact , no bowel/bladder incontinence PSYCHIATRIC: mood affect appropriate Vital Signs Date Time Temp Pulse Resp B/P (MAP) Pulse Ox O2 Delivery O2 Flow Rate FiO2 05/09/19 12:23 16 05/09/19 11:53 16 05/09/19 06:00 97.3 63 18 143/75 (97) 90 05/09/19 05:47 15 05/09/19 01:16 16 05/08/19 22:00 98.5 74 18 129/68 (88) 92 05/08/19 21:13 16 05/08/19 14:06 16 Intake & Output 05/09/19 06:00 Intake Total 1440 ml Output Total 800 ml Balance 640 ml Current Medications Medications (Trade) Dose Ordered Sig/Queenie Route PRN Reason Start Time Stop Time Status Last Admin Dose Admin Calcitonin [place] (Miacalcin (Fortical)) 1 sprays DAILY NA 05/06/19 09:00 05/09/19 09:13 1 SPRAYS Escitalopram Oxalate (Lexapro) 10 mg DAILY PO 05/06/19 09:00 05/09/19 09:14 10 MG Ketorolac Tromethamine (ToRADol) 30 mg Q8HP PRN IV pain 05/05/19 18:45 05/10/19 18:44 05/09/19 01:16 30 MG Levothyroxine Sodium (Synthroid) 75 mcg DAILY@0600 PO 05/06/19 06:00 05/09/19 05:46 75 MCG Magnesium Hydroxide (Milk Of Magnesia) 30 ml DAILY PO 05/07/19 09:00 05/08/19 08:37 30 ML Omeprazole (PriLOSEC) 20 mg DAILY PO 05/06/19 09:00 05/09/19 09:13 20 MG Oxycodone/ Acetaminophen (Percocet 5mg/ 325mg Tablet) 1 tab Q4HP PRN PO MILD/MODERATE PAIN (PS 1-7) 05/06/19 10:30 05/09/19 11:53 1 TAB Patient Own Medication (Patient'S Own Med) DOSE = 1/2 TAB DAILY PO 05/06/19 09:00 05/09/19 09:14 1 EA Polyethylene Glycol (Miralax) 1 pkt DAILY PO 05/07/19 09:00 05/08/19 08:36 1 PKT Rosuvastatin Calcium (Crestor) 10 mg DAILY PO 05/06/19 09:00 05/09/19 09:13 10 MG Senna/Docusate Sodium (Senokot S) 1 tab BID PO 05/07/19 09:00 05/09/19 09:13 1 TAB Warfarin Sodium (Coumadin) 5 mg SuTuWeFrSa@1200 PO 05/07/19 12:00 05/09/19 11:52 5 MG Acute compression fracture of T12 with retropulsion of fractured elements into the spinal canal reducing the anterior posterior diameter to 11.5 mm with mild cord impingement. Multilevel spinal stenoses, moderate at L1-2, mild to moderate at L2-3, moderate at L3-4, and mild to moderate at L4-5. A/P 1-S/P Fall secondary to loosing balance, no syncope 2-Intractable lumbar spine pain sec to T12 compression fracture with retropulsin to spinal canal Pt sensory motor LE intact, no saddle anesthesia, bowel/bladder incontinence Orthopedic Service on board, CT finding reviewed by plant controls specialist, there is less than 30% of canal involvement, no invasive intervention required at this point Awaiting Ortho device to support lumbothoracic area Cont pain control Cont home meds DVT prophylaxis PT/OT to evaluate and treat VS,Fishbone, I+O VS, Fishbone, I+O Vital Signs Date Time Temp Pulse Resp B/P (MAP) Pulse Ox O2 Delivery O2 Flow Rate FiO2 05/08/19 21:13 16 05/08/19 13:30 97.8 05/08/19 13:30 69 151/85 (107) 92 05/05/19 20:16 Room Air I&O- Last 24 Hours up to 6 AM 05/08/19 06:00 Intake Total 740 ml Output Total 1000 ml Balance -260 ml JESSICA TINEO MD May 08, 2019 23:14
[2019-05-09] MEDS: KETOROLAC 30 MG/ML VIAL (J1885) IV PRN (01:16)
[2019-05-09] MEDS: PERCOCET 5MG/325MG TAB PO PRN ×4 (01:16→17:06)
[2019-05-09] MEDS: LEVOTHYROXINE 75MCG TABLET (0.075MG) PO SCH (05:46)
[2019-05-09 06:00] VITALS: BP 143/75
[2019-05-09] MEDS: MOM 30ML SUSPENSION UDC PO SCH (09:00)
[2019-05-09] MEDS: MIRALAX *UNIT DOSE* 17GM PACKET PO SCH (09:00)
[2019-05-09] MEDS: CALCITONIN NASAL SPRAY 3.7 ML BTL SCH (09:13)
[2019-05-09] MEDS: SENOKOT S TAB PO SCH ×2 (09:13→20:30)
[2019-05-09] MEDS: OMEPRAZOLE 20 MG CAP PO SCH (09:13)
[2019-05-09] MEDS: ROSUVASTATIN 10 MG TAB (CRESTOR) PO SCH (09:13)
[2019-05-09] MEDS: MAXZIDE PO SCH (09:14)
[2019-05-09] MEDS: ESCITALOPRAM OXALATE 10 MG TAB (LEXAPRO) PO SCH (09:14)
[2019-05-09] MEDS: WARFARIN SOD 5 MG TAB PO SCH (11:52)
[2019-05-09 14:00] VITALS: BP 145/77
--- NOTE | 2019-05-09 14:09 | IPNPDOC ---
Text Note Date of Service The patient was seen on 05/09/19. NOTE Pt was seen and examined at bedside. Ortho service on board to provide with lumbothoracic brace. Pt states pain is better controlled on current analgesic regimen however still pain present to moderately degree. Denies any motor sensory loss. Denies any incontinence. PHE: GENERAL APPEARANCE: AAOx3 pleasant mood today HEENT: RAMIRO, EOMI no icterus no JVD no trauma CARDIOVASCULAR: S1 S2 no murmur LUNGS: clear bilat ABDOMEN: soft NT ND MUSCULOSKELETAL: tenderness on lumbar sacral spines continues since last seen NEUROLOGICAL: LE motor bilat intact , no bowel/bladder incontinence PSYCHIATRIC: mood affect appropriate Vital Signs Date Time Temp Pulse Resp B/P (MAP) Pulse Ox O2 Delivery O2 Flow Rate FiO2 05/09/19 12:23 16 05/09/19 11:53 16 05/09/19 06:00 97.3 63 18 143/75 (97) 90 05/09/19 05:47 15 05/09/19 01:16 16 05/08/19 22:00 98.5 74 18 129/68 (88) 92 05/08/19 21:13 16 05/08/19 14:06 16 Intake & Output 05/09/19 06:00 Intake Total 1440 ml Output Total 800 ml Balance 640 ml Current Medications Medications (Trade) Dose Ordered Sig/Queenie Route PRN Reason Start Time Stop Time Status Last Admin Dose Admin Calcitonin [place] (Miacalcin (Fortical)) 1 sprays DAILY NA 05/06/19 09:00 05/09/19 09:13 1 SPRAYS Escitalopram Oxalate (Lexapro) 10 mg DAILY PO 05/06/19 09:00 05/09/19 09:14 10 MG Ketorolac Tromethamine (ToRADol) 30 mg Q8HP PRN IV pain 05/05/19 18:45 05/10/19 18:44 05/09/19 01:16 30 MG Levothyroxine Sodium (Synthroid) 75 mcg DAILY@0600 PO 05/06/19 06:00 05/09/19 05:46 75 MCG Magnesium Hydroxide (Milk Of Magnesia) 30 ml DAILY PO 05/07/19 09:00 05/08/19 08:37 30 ML Omeprazole (PriLOSEC) 20 mg DAILY PO 05/06/19 09:00 05/09/19 09:13 20 MG Oxycodone/ Acetaminophen (Percocet 5mg/ 325mg Tablet) 1 tab Q4HP PRN PO MILD/MODERATE PAIN (PS 1-7) 05/06/19 10:30 05/09/19 11:53 1 TAB Patient Own Medication (Patient'S Own Med) DOSE = 1/2 TAB DAILY PO 05/06/19 09:00 05/09/19 09:14 1 EA Polyethylene Glycol (Miralax) 1 pkt DAILY PO 05/07/19 09:00 05/08/19 08:36 1 PKT Rosuvastatin Calcium (Crestor) 10 mg DAILY PO 05/06/19 09:00 05/09/19 09:13 10 MG Senna/Docusate Sodium (Senokot S) 1 tab BID PO 05/07/19 09:00 05/09/19 09:13 1 TAB Warfarin Sodium (Coumadin) 5 mg SuTuWeFrSa@1200 PO 05/07/19 12:00 05/09/19 11:52 5 MG Acute compression fracture of T12 with retropulsion of fractured elements into the spinal canal reducing the anterior posterior diameter to 11.5 mm with mild cord impingement. Multilevel spinal stenoses, moderate at L1-2, mild to moderate at L2-3, moderate at L3-4, and mild to moderate at L4-5. A/P 1-S/P Fall secondary to loosing balance, no syncope 2-Intractable lumbar spine pain sec to T12 compression fracture with retropulsin to spinal canal Pt sensory motor LE intact, no saddle anesthesia, bowel/bladder incontinence Orthopedic Service on board, CT finding reviewed by drug discovery informatics specialist, there is less than 30% of canal involvement, no invasive intervention required at this point Awaiting Ortho device to support lumbothoracic area Cont pain control Cont home meds DVT prophylaxis PT/OT to evaluate and treat Disposition: Pt continues to have intractable pain despite analgesic regimen, A waiting lumbothoracic brace by orthopedics, requires functional optimization. VS,Fishbone, I+O VS, Fishbone, I+O Vital Signs Date Time Temp Pulse Resp B/P (MAP) Pulse Ox O2 Delivery O2 Flow Rate FiO2 05/09/19 12:23 16 05/09/19 06:00 97.3 63 143/75 (97) 90 05/05/19 20:16 Room Air I&O- Last 24 Hours up to 6 AM 05/09/19 06:00 Intake Total 1440 ml Output Total 800 ml Balance 640 ml JESSICA TINEO MD May 09, 2019 14:09
[2019-05-09] MEDS: CYCLOBENZAPRINE 5MG TABLET PO PRN (17:06)
[2019-05-09 22:00] VITALS: BP 149/78
[2019-05-10] MEDS: CYCLOBENZAPRINE 5MG TABLET PO PRN ×2 (03:17→22:09)
[2019-05-10] MEDS: PERCOCET 5MG/325MG TAB PO PRN ×3 (03:18→22:09)
[2019-05-10 06:00] VITALS: BP 125/61
[2019-05-10] MEDS: LEVOTHYROXINE 75MCG TABLET (0.075MG) PO SCH (06:01)
--- NOTE | 2019-05-10 07:49 | IPNPDOC ---
Text Note Date of Service The patient was seen on 05/10/19. NOTE Pt was seen and examined at bedside. Pt refers pain control moderately effective for her low back pain. Continues to have intractable low back pain. Denies any motor sensory deficits. Denies any bowel/bladder incontinence. Contacted Dr. Mccauley office, will reevaluate and give instruction. PHE: GENERAL APPEARANCE: AAOx3 pleasant mood today HEENT: RAMIRO, EOMI no icterus no JVD no trauma CARDIOVASCULAR: S1 S2 no murmur LUNGS: clear bilat ABDOMEN: soft NT ND MUSCULOSKELETAL: tenderness on lumbar sacral spines continues since last seen NEUROLOGICAL: LE motor bilat intact , no bowel/bladder incontinence PSYCHIATRIC: mood affect appropriate Vital Signs Date Time Temp Pulse Resp B/P (MAP) Pulse Ox O2 Delivery O2 Flow Rate FiO2 05/10/19 06:00 97.7 64 18 125/61 (82) 90 05/10/19 03:48 15 05/10/19 03:18 16 05/09/19 22:00 97.5 67 20 149/78 (101) 90 05/09/19 17:06 16 05/09/19 14:00 97.7 64 18 145/77 (99) 89 05/09/19 11:53 16 Intake & Output 05/10/19 06:00 Intake Total 900 ml Output Total 1150 ml Balance -250 ml Current Medications Medications (Trade) Dose Ordered Sig/Queenie Route PRN Reason Start Time Stop Time Status Last Admin Dose Admin Calcitonin [place] (Miacalcin (Fortical)) 1 sprays DAILY NA 05/06/19 09:00 05/09/19 09:13 1 SPRAYS Cyclobenzaprine HCl (Flexeril) 5 mg Q6HP PRN PO SPASMS 05/09/19 07:30 05/10/19 03:17 5 MG Escitalopram Oxalate (Lexapro) 10 mg DAILY PO 05/06/19 09:00 05/09/19 09:14 10 MG Ketorolac Tromethamine (ToRADol) 30 mg Q8HP PRN IV pain 05/05/19 18:45 05/10/19 18:44 05/09/19 01:16 30 MG Levothyroxine Sodium (Synthroid) 75 mcg DAILY@0600 PO 05/06/19 06:00 05/10/19 06:01 75 MCG Magnesium Hydroxide (Milk Of Magnesia) 30 ml DAILY PO 05/07/19 09:00 05/08/19 08:37 30 ML Omeprazole (PriLOSEC) 20 mg DAILY PO 05/06/19 09:00 05/09/19 09:13 20 MG Oxycodone/ Acetaminophen (Percocet 5mg/ 325mg Tablet) 1 tab Q4HP PRN PO MILD/MODERATE PAIN (PS 1-7) 05/06/19 10:30 05/10/19 03:18 1 TAB Patient Own Medication (Patient'S Own Med) DOSE = 1/2 TAB DAILY PO 05/06/19 09:00 05/09/19 09:14 1 EA Polyethylene Glycol (Miralax) 1 pkt DAILY PO 05/07/19 09:00 05/08/19 08:36 1 PKT Rosuvastatin Calcium (Crestor) 10 mg DAILY PO 05/06/19 09:00 05/09/19 09:13 10 MG Senna/Docusate Sodium (Senokot S) 1 tab BID PO 05/07/19 09:00 05/09/19 20:30 1 TAB Warfarin Sodium (Coumadin) 5 mg SuTuWeFrSa@1200 PO 05/07/19 12:00 05/09/19 11:52 5 MG Acute compression fracture of T12 with retropulsion of fractured elements into the spinal canal reducing the anterior posterior diameter to 11.5 mm with mild cord impingement. Multilevel spinal stenoses, moderate at L1-2, mild to moderate at L2-3, moderate at L3-4, and mild to moderate at L4-5. A/P 1-S/P Fall secondary to loosing balance, no syncope 2-Intractable lumbar spine pain sec to T12 compression fracture with retropulsin to spinal canal Pt sensory motor LE intact, no saddle anesthesia, no bowel/bladder incontinence Orthopedic Service on board, CT finding reviewed by motor tune up specialist, there is less than 30% of canal involvement, no invasive intervention required at this point Awaiting Ortho device to support lumbothoracic area. I contacted Dr. Wilson office today regarding disposition plan as well as availability of orthopedic device. Dr. Mccauley will reevaluate today. Cont pain control Cont home meds DVT prophylaxis , pt on Warfarin PT/OT to evaluate and treat Disposition: Pt continues to have intractable pain despite analgesic regimen, Awaiting lumbothoracic brace by orthopedics, requires functional optimization. VS,Fishbone, I+O VS, Fishbone, I+O Vital Signs Date Time Temp Pulse Resp B/P (MAP) Pulse Ox O2 Delivery O2 Flow Rate FiO2 05/10/19 06:00 97.7 64 18 125/61 (82) 90 05/05/19 20:16 Room Air I&O- Last 24 Hours up to 6 AM 05/10/19 06:00 Intake Total 900 ml Output Total 1150 ml Balance -250 ml JESSICA TINEO MD May 10, 2019 07:49
[2019-05-10] MEDS: MOM 30ML SUSPENSION UDC PO SCH (09:05)
[2019-05-10] MEDS: OMEPRAZOLE 20 MG CAP PO SCH (09:05)
[2019-05-10] MEDS: MIRALAX *UNIT DOSE* 17GM PACKET PO SCH (09:05)
[2019-05-10] MEDS: ROSUVASTATIN 10 MG TAB (CRESTOR) PO SCH (09:05)
[2019-05-10] MEDS: ESCITALOPRAM OXALATE 10 MG TAB (LEXAPRO) PO SCH (09:05)
[2019-05-10] MEDS: SENOKOT S TAB PO SCH ×2 (09:05→21:00)
[2019-05-10] MEDS: MAXZIDE PO SCH (09:05)
[2019-05-10] MEDS: CALCITONIN NASAL SPRAY 3.7 ML BTL SCH (09:06)
[2019-05-10] MEDS: WARFARIN SOD 2.5 MG TAB PO SCH (12:17)
[2019-05-10] MEDS: KETOROLAC 30 MG/ML VIAL (J1885) IV PRN (12:20)
[2019-05-10 13:58] VITALS: BP 141/75
[2019-05-10 22:00] VITALS: BP 145/77
[2019-05-11] MEDS: LEVOTHYROXINE 75MCG TABLET (0.075MG) PO SCH (05:46)
[2019-05-11 06:00] VITALS: BP 111/57
[2019-05-11] MEDS ORDERED: KETOROLAC 30 MG/ML VIAL (J1885) IV PRN (06:00)
[2019-05-11 06:04] LABS: BASO % 0.6 % (0.0-1.0); EOS # 0.6 10^3/uL (0.0-0.50); EOS % 12.1 % (0.0-3.0); HEMATOCRIT 38.9 % (36.0-47.0); HEMOGLOBIN 12.8 g/dl (12.0-15.5); LYMPH # 1.7 10^3/uL (1.5-4.5); LYMPH % 32.1 % (24.0-44.0); MEAN CORPUSCULAR HEMOGLOBIN 31.8 pg (27.0-33.0); MEAN CORPUSCULAR HGB CONC 32.9 g/dl (32.0-36.5); MEAN CORPUSCULAR VOLUME 96.8 fl (80.0-96.0); MONO # 0.5 10^3/uL (0.0-0.8); MONO % 8.9 % (0.0-5.0); NEUTROPHILS # 2.4 10^3/uL (1.8-7.7); NEUTROPHILS % 45.9 % (36.0-66.0); PLATELET COUNT, AUTOMATED 214 10^3/uL (150-450); RED BLOOD COUNT 4.02 10^6/uL (4.00-5.40); WHITE BLOOD COUNT 5.3 10^3/uL (4.0-10.0)
[2019-05-11 06:16] LABS: INR 2.66; PROTHROMBIN TIME 28.2 SECONDS (11.8-14.0)
[2019-05-11 08:05] LABS: BLOOD UREA NITROGEN 22 MG/DL (7-18); CALCIUM LEVEL 8.9 MG/DL (8.8-10.2); CARBON DIOXIDE LEVEL 28 MEQ/L (21-32); CHLORIDE LEVEL 107 MEQ/L (98-107); CREATININE FOR GFR 0.78 MG/DL (0.55-1.30); GLOMERULAR FILTRATION RATE > 60.0 (>32); GLUCOSE, FASTING 84 MG/DL (70-100); POTASSIUM SERUM 4.4 MEQ/L (3.5-5.1); SODIUM LEVEL 141 MEQ/L (136-145)
[2019-05-11] MEDS: MIRALAX *UNIT DOSE* 17GM PACKET PO SCH (08:10)
[2019-05-11] MEDS: OMEPRAZOLE 20 MG CAP PO SCH (08:10)
[2019-05-11] MEDS: ESCITALOPRAM OXALATE 10 MG TAB (LEXAPRO) PO SCH (08:10)
[2019-05-11] MEDS: MAXZIDE PO SCH (08:10)
[2019-05-11] MEDS: SENOKOT S TAB PO SCH ×2 (08:10→20:55)
[2019-05-11] MEDS: ROSUVASTATIN 10 MG TAB (CRESTOR) PO SCH (08:10)
[2019-05-11] MEDS: MOM 30ML SUSPENSION UDC PO SCH (08:10)
[2019-05-11] MEDS: CALCITONIN NASAL SPRAY 3.7 ML BTL SCH (08:11)
[2019-05-11] MEDS: DICLOFENAC EPOLAMINE 1.3 % PATCH TOP SCH ×2 (08:51→20:54)
[2019-05-11] MEDS: WARFARIN SOD 5 MG TAB PO SCH (11:34)
--- NOTE | 2019-05-11 13:31 | IPNPDOC ---
Subjective Date Seen The patient was seen on 05/11/19. Subjective Chief Complaint/HPI Continues to have back pain , has not been out of bed as her TSLO brace yet. Did not have bowel movements for 2 days Objective Physical Examination General Exam: Positive: Alert, Cooperative, No Acute Distress Eye Exam: Positive: PERRLA, Conjunctiva & lids normal, EOMI; Negative: Sclera icteric ENT Exam: Positive: Atraumatic, Mucous membr. moist/pink, Pharynx Normal Neck Exam: Positive: Supple; Negative: JVD, thyromegaly Chest Exam: Positive: Clear to auscultation, Normal air movement Heart Exam: Positive: Rate Normal, Regular Rhythm, Normal S1, Normal S2; Negative: Murmurs, Rubs Abdomen Exam: Positive: Normal bowel sounds, Soft; Negative: Tenderness, Hepatospenomegaly Extremity Exam: Positive: Normal pulses; Negative: Clubbing, Cyanosis, Edema Skin Exam: Positive: Nl turgor and temperature; Negative: Rash, Breakdown Assessment /Plan Assessment Acute compression fracture of T12 with retropulsion of fractured elements into the spinal canal with less than 30% reduction in spinal canal s/p mechanical fall Pain control with flector patch and percocet, cyclobenzaprine seen by ortho advised TSLO brace PT after brace. 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 Hyperlipidemia continue statin Bilateral knee osteoarthritis, will resume calcium and osteobioflex on discharge pain controlled today Hx of Pulmonary Embolism on AC by Warfarin. Hypothyroid synthroid Hypertension on diuretics HCTZ/triamterone Depression lexapro GERD continue PPI Plan/VTE VTE Prophylaxis Ordered?: Yes VS, I&O, 24H, Fishbone Vital Signs/I&O Vital Signs Date Time Temp Pulse Resp B/P (MAP) Pulse Ox O2 Delivery O2 Flow Rate FiO2 05/11/19 06:00 96.1 75 18 111/57 (75) 96 05/05/19 20:16 Room Air I&O- Last 24 Hours up to 6 AM 05/11/19 05:59 Intake Total 630 ml Output Total 1300 ml Balance -670 ml Laboratory Data 24H LABS Laboratory Tests 2 05/11/19 05:35: Immature Granulocyte % (Auto) 0.4, White Blood Count 5.3, Red Blood Count 4.02, Hemoglobin 12.8, Hematocrit 38.9, Mean Corpuscular Volume 96.8H, Mean Corpuscular Hemoglobin 31.8, Mean Corpuscular Hemoglobin Concent 32.9, Red Cell Distribution Width 14.4, Platelet Count 214, Neutrophils (%) (Auto) 45.9, Lymphocytes (%) (Auto) 32.1, Monocytes (%) (Auto) 8.9H, Eosinophils (%) (Auto) 12.1H, Basophils (%) (Auto) 0.6, Neutrophils # (Auto) 2.4, Lymphocytes # (Auto) 1.7, Monocytes # (Auto) 0.5, Eosinophils # (Auto) 0.6H, Basophils # (Auto) 0.0, Nucleated Red Blood Cells % (auto) 0.0, Prothrombin Time 28.2H, Prothromb Time International Ratio 2.66, Anion Gap 6L, Glomerular Filtration Rate > 60.0, Blood Urea Nitrogen 22H, Creatinine 0.78, Sodium Level 141, Potassium Level 4.4, Chloride Level 107, Carbon Dioxide Level 28, Calcium Level 8.9 CBC/BMP Laboratory Tests 05/11/19 05:35 Red Blood Count 4.02, Mean Corpuscular Volume 96.8 H, Mean Corpuscular Hemoglobin 31.8, Mean Corpuscular Hemoglobin Concent 32.9, Red Cell Distribution Width 14.4, Neutrophils (%) (Auto) 45.9, Lymphocytes (%) (Auto) 32.1, Monocytes (%) (Auto) 8.9 H, Eosinophils (%) (Auto) 12.1 H, Basophils (%) (Auto) 0.6, Neutrophils # (Auto) 2.4, Lymphocytes # (Auto) 1.7, Monocytes # (Auto) 0.5, Eosinophils # (Auto) 0.6 H, Basophils # (Auto) 0.0, Calcium Level 8.9 JULIANNA MEDINA MD May 11, 2019 13:31
[2019-05-11] MEDS: PERCOCET 5MG/325MG TAB PO PRN ×2 (13:46→22:22)
[2019-05-11] MEDS: CYANOCOBALAMIN 500 MCG TAB PO SCH (20:55)
[2019-05-11] MEDS: VITAMIN D 1,000 INTERNATIONAL UNITS TABLET PO SCH (20:55)
[2019-05-11 22:00] VITALS: BP 151/79
[2019-05-12] MEDS: LEVOTHYROXINE 75MCG TABLET (0.075MG) PO SCH (05:36)
[2019-05-12] MEDS: PERCOCET 5MG/325MG TAB PO PRN ×3 (05:37→20:24)
[2019-05-12 06:00] VITALS: BP 165/81
[2019-05-12 06:35] LABS: BASO % 0.5 % (0.0-1.0); EOS # 0.7 10^3/uL (0.0-0.50); EOS % 11.1 % (0.0-3.0); HEMATOCRIT 39.4 % (36.0-47.0); HEMOGLOBIN 13.2 g/dl (12.0-15.5); LYMPH # 1.8 10^3/uL (1.5-4.5); LYMPH % 29.5 % (24.0-44.0); MEAN CORPUSCULAR HEMOGLOBIN 32.3 pg (27.0-33.0); MEAN CORPUSCULAR HGB CONC 33.5 g/dl (32.0-36.5); MEAN CORPUSCULAR VOLUME 96.3 fl (80.0-96.0); MONO # 0.5 10^3/uL (0.0-0.8); MONO % 7.7 % (0.0-5.0); NEUTROPHILS # 3.1 10^3/uL (1.8-7.7); PLATELET COUNT, AUTOMATED 215 10^3/uL (150-450); RED BLOOD COUNT 4.09 10^6/uL (4.00-5.40)
[2019-05-12 06:43] LABS: INR 2.49; PROTHROMBIN TIME 26.8 SECONDS (11.8-14.0)
[2019-05-12 06:52] LABS: BLOOD UREA NITROGEN 19 MG/DL (7-18); CALCIUM LEVEL 8.7 MG/DL (8.8-10.2); CARBON DIOXIDE LEVEL 27 MEQ/L (21-32); CHLORIDE LEVEL 106 MEQ/L (98-107); GLOMERULAR FILTRATION RATE > 60.0 (>32); GLUCOSE, FASTING 95 MG/DL (70-100); POTASSIUM SERUM 4.3 MEQ/L (3.5-5.1); SODIUM LEVEL 140 MEQ/L (136-145)
[2019-05-12] MEDS: OMEPRAZOLE 20 MG CAP PO SCH (08:15)
[2019-05-12] MEDS: ROSUVASTATIN 10 MG TAB (CRESTOR) PO SCH (08:16)
[2019-05-12] MEDS: DICLOFENAC EPOLAMINE 1.3 % PATCH TOP SCH ×2 (08:16→20:22)
[2019-05-12] MEDS: ESCITALOPRAM OXALATE 10 MG TAB (LEXAPRO) PO SCH (08:16)
[2019-05-12] MEDS: MAXZIDE PO SCH (08:16)
[2019-05-12] MEDS: MIRALAX *UNIT DOSE* 17GM PACKET PO SCH (08:17)
[2019-05-12] MEDS: MOM 30ML SUSPENSION UDC PO SCH (08:17)
[2019-05-12] MEDS: SENOKOT S TAB PO SCH ×2 (08:17→20:23)
[2019-05-12] MEDS: WARFARIN SOD 5 MG TAB PO SCH (11:17)
[2019-05-12] MEDS: CYCLOBENZAPRINE 5MG TABLET PO PRN ×2 (11:17→18:49)
[2019-05-12 14:00] VITALS: BP 125/79
--- NOTE | 2019-05-12 14:24 | IPNPDOC ---
Subjective Date Seen The patient was seen on 05/12/19. Subjective Chief Complaint/HPI Says back pain is a little better . The flector patch is helping. SHe did have a big bowel movement last night. no fever or chills, no chest pain or SOb , no abdominal pain nausea or vomiting . Pateint has a brace and today she has started working with PT. Objective Physical Examination General Exam: Positive: Alert, Cooperative, No Acute Distress Eye Exam: Positive: PERRLA, Conjunctiva & lids normal, EOMI; Negative: Sclera icteric ENT Exam: Positive: Atraumatic, Mucous membr. moist/pink, Pharynx Normal Neck Exam: Positive: Supple; Negative: JVD, thyromegaly Chest Exam: Positive: Clear to auscultation, Normal air movement Heart Exam: Positive: Rate Normal, Regular Rhythm, Normal S1, Normal S2; Negative: Murmurs, Rubs Abdomen Exam: Positive: Normal bowel sounds, Soft; Negative: Tenderness, Hepatospenomegaly Extremity Exam: Positive: Normal pulses; Negative: Clubbing, Cyanosis, Edema Skin Exam: Positive: Nl turgor and temperature; Negative: Rash, Breakdown Assessment /Plan Assessment 78 y/o F with PMHx of bilateral knee osteoarthritis, Hx of Pulmonary Embolism on AC by Warfarin, Lumber spinal stenosis, obesity, hyperlipidemia, hypothyroid, hypertension, depression , GERD presented to the hospital after a mechanical fall on her back then inability to get up or stand or move. CT of lumber spine showed Acute compression fracture of T12 with retropulsion of fractured elements into the spinal canal reducing the anterior posterior diameter to 11.5 mm with mild cord impingement. Dextroscoliosis lower lumbar spine. 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 Acute compression fracture of T12 with retropulsion of fractured elements into the spinal canal with less than 30% reduction in spinal canal s/p mechanical fall Pain control with flector patch and percocet, cyclobenzaprine seen by ortho advised TSLO brace PT with brace. 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 Hyperlipidemia continue statin Bilateral knee osteoarthritis, will resume calcium and osteobioflex on discharge pain controlled today Hx of Pulmonary Embolism on AC by Warfarin. Hypothyroid synthroid Hypertension on diuretics HCTZ/triamterone Depression lexapro GERD continue PPI Plan/VTE VTE Prophylaxis Ordered?: Yes VS, I&O, 24H, Fishbone Vital Signs/I&O Vital Signs Date Time Temp Pulse Resp B/P (MAP) Pulse Ox O2 Delivery O2 Flow Rate FiO2 05/12/19 06:15 12 05/12/19 06:00 98.5 61 165/81 (109) 93 I&O- Last 24 Hours up to 6 AM 05/12/19 05:59 Intake Total 600 ml Output Total 1550 ml Balance -950 ml Laboratory Data 24H LABS Laboratory Tests 2 05/12/19 06:10: Immature Granulocyte % (Auto) 0.2, White Blood Count 6.0, Red Blood Count 4.09, Hemoglobin 13.2, Hematocrit 39.4, Mean Corpuscular Volume 96.3H, Mean Corpuscular Hemoglobin 32.3, Mean Corpuscular Hemoglobin Concent 33.5, Red Cell Distribution Width 14.1, Platelet Count 215, Neutrophils (%) (Auto) 51.0, Lymphocytes (%) (Auto) 29.5, Monocytes (%) (Auto) 7.7H, Eosinophils (%) (Auto) 11.1H, Basophils (%) (Auto) 0.5, Neutrophils # (Auto) 3.1, Lymphocytes # (Auto) 1.8, Monocytes # (Auto) 0.5, Eosinophils # (Auto) 0.7H, Basophils # (Auto) 0.0, Nucleated Red Blood Cells % (auto) 0.0, Prothrombin Time 26.8H, Prothromb Time International Ratio 2.49, Anion Gap 7L, Glomerular Filtration Rate > 60.0, Blood Urea Nitrogen 19H, Creatinine 0.70, Sodium Level 140, Potassium Level 4.3, Chloride Level 106, Carbon Dioxide Level 27, Calcium Level 8.7L CBC/BMP Laboratory Tests 05/12/19 06:10 Red Blood Count 4.09, Mean Corpuscular Volume 96.3 H, Mean Corpuscular Hemoglobin 32.3, Mean Corpuscular Hemoglobin Concent 33.5, Red Cell Distribution Width 14.1, Neutrophils (%) (Auto) 51.0, Lymphocytes (%) (Auto) 29.5, Monocytes (%) (Auto) 7.7 H, Eosinophils (%) (Auto) 11.1 H, Basophils (%) (Auto) 0.5, Neutrophils # (Auto) 3.1, Lymphocytes # (Auto) 1.8, Monocytes # (Auto) 0.5, Eosinophils # (Auto) 0.7 H, Basophils # (Auto) 0.0, Calcium Level 8.7 L JULIANNA MEDINA MD May 12, 2019 14:23
[2019-05-12] MEDS: CYANOCOBALAMIN 500 MCG TAB PO SCH (20:23)
[2019-05-12] MEDS: VITAMIN D 1,000 INTERNATIONAL UNITS TABLET PO SCH (20:23)
[2019-05-12 22:00] VITALS: BP 153/81
[2019-05-13] MEDS: LEVOTHYROXINE 75MCG TABLET (0.075MG) PO SCH (05:36)
[2019-05-13] MEDS: PERCOCET 5MG/325MG TAB PO PRN ×4 (05:36→20:58)
[2019-05-13 06:00] VITALS: BP 140/83
[2019-05-13 06:41] LABS: BASO # 0.1 10^3/uL (0.0-0.2); BASO % 0.9 % (0.0-1.0); EOS # 0.7 10^3/uL (0.0-0.50); EOS % 11.3 % (0.0-3.0); HEMATOCRIT 39.6 % (36.0-47.0); HEMOGLOBIN 13.2 g/dl (12.0-15.5); LYMPH # 1.9 10^3/uL (1.5-4.5); MEAN CORPUSCULAR HEMOGLOBIN 32.1 pg (27.0-33.0); MEAN CORPUSCULAR HGB CONC 33.3 g/dl (32.0-36.5); MEAN CORPUSCULAR VOLUME 96.4 fl (80.0-96.0); MONO # 0.5 10^3/uL (0.0-0.8); MONO % 8.5 % (0.0-5.0); NEUTROPHILS # 2.8 10^3/uL (1.8-7.7); PLATELET COUNT, AUTOMATED 220 10^3/uL (150-450); RED BLOOD COUNT 4.11 10^6/uL (4.00-5.40); WHITE BLOOD COUNT 5.9 10^3/uL (4.0-10.0)
[2019-05-13 06:49] LABS: INR 2.58; PROTHROMBIN TIME 27.5 SECONDS (11.8-14.0)
[2019-05-13 06:59] LABS: BLOOD UREA NITROGEN 20 MG/DL (7-18); CALCIUM LEVEL 9.2 MG/DL (8.8-10.2); CARBON DIOXIDE LEVEL 29 MEQ/L (21-32); CHLORIDE LEVEL 105 MEQ/L (98-107); CREATININE FOR GFR 0.79 MG/DL (0.55-1.30); GLOMERULAR FILTRATION RATE > 60.0 (>32); GLUCOSE, FASTING 91 MG/DL (70-100); POTASSIUM SERUM 4.2 MEQ/L (3.5-5.1); SODIUM LEVEL 140 MEQ/L (136-145)
[2019-05-13] MEDS: ESCITALOPRAM OXALATE 10 MG TAB (LEXAPRO) PO SCH (08:55)
[2019-05-13] MEDS: ROSUVASTATIN 10 MG TAB (CRESTOR) PO SCH (08:55)
[2019-05-13] MEDS: CYCLOBENZAPRINE 5MG TABLET PO PRN ×2 (08:55→20:57)
[2019-05-13] MEDS: OMEPRAZOLE 20 MG CAP PO SCH (08:55)
[2019-05-13] MEDS: MIRALAX *UNIT DOSE* 17GM PACKET PO SCH (08:56)
[2019-05-13] MEDS: MAXZIDE PO SCH (08:56)
[2019-05-13] MEDS: SENOKOT S TAB PO SCH ×2 (08:56→20:57)
[2019-05-13] MEDS: MOM 30ML SUSPENSION UDC PO SCH (08:56)
[2019-05-13] MEDS: DICLOFENAC EPOLAMINE 1.3 % PATCH TOP SCH ×2 (08:57→20:58)
--- NOTE | 2019-05-13 09:17 | IPNPDOC ---
Subjective Date Seen The patient was seen on 05/13/19. Subjective Chief Complaint/HPI No new complaints this morning. Says the brace is uncomfortable to wear . Back pain is controlled. No fever or chills, no bowel or bladder issues Objective Physical Examination General Exam: Positive: Alert, Cooperative, No Acute Distress Eye Exam: Positive: PERRLA, Conjunctiva & lids normal, EOMI; Negative: Sclera icteric ENT Exam: Positive: Atraumatic, Mucous membr. moist/pink, Pharynx Normal Neck Exam: Positive: Supple; Negative: JVD, thyromegaly Chest Exam: Positive: Clear to auscultation, Normal air movement Heart Exam: Positive: Rate Normal, Regular Rhythm, Normal S1, Normal S2; Negative: Murmurs, Rubs Abdomen Exam: Positive: Normal bowel sounds, Soft; Negative: Tenderness, Hepatospenomegaly Extremity Exam: Positive: Normal pulses; Negative: Clubbing, Cyanosis, Edema Skin Exam: Positive: Nl turgor and temperature; Negative: Rash, Breakdown Assessment /Plan Assessment 78 y/o F with PMHx of bilateral knee osteoarthritis, Hx of Pulmonary Embolism on AC by Warfarin, Lumber spinal stenosis, obesity, hyperlipidemia, hypothyroid, hypertension, depression , GERD presented to the hospital after a mechanical fall on her back then inability to get up or stand or move. CT of lumber spine showed Acute compression fracture of T12 with retropulsion of fractured e lements into the spinal canal reducing the anterior posterior diameter to 11.5 mm with mild cord impingement. Dextroscoliosis lower lumbar spine. 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 Acute compression fracture of T12 with retropulsion of fractured elements into the spinal canal with less than 30% reduction in spinal canal s/p mechanical fall Pain control with flector patch and percocet, cyclobenzaprine seen by ortho advised TSLO brace PT with brace. Not yet cleared from PT stand point. 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 Hyperlipidemia continue statin Bilateral knee osteoarthritis, will resume calcium and osteobioflex on discharge pain controlled today Hx of Pulmonary Embolism on AC by Warfarin. Hypothyroid synthroid Hypertension on diuretics HCTZ/triamterone Depression lexapro GERD continue PPI Plan/VTE VTE Prophylaxis Ordered?: Yes VS, I&O, 24H, Fishbone Vital Signs/I&O Vital Signs Date Time Temp Pulse Resp B/P (MAP) Pulse Ox O2 Delivery O2 Flow Rate FiO2 05/13/19 06:10 12 05/13/19 06:00 97.1 78 140/83 (102) 94 I&O- Last 24 Hours up to 6 AM 05/13/19 05:59 Intake Total 1500 ml Output Total 950 ml Balance 550 ml Laboratory Data 24H LABS Laboratory Tests 2 05/13/19 06:11: Immature Granulocyte % (Auto) 0.3, White Blood Count 5.9, Red Blood Count 4.11, Hemoglobin 13.2, Hematocrit 39.6, Mean Corpuscular Volume 96.4H, Mean Corpuscular Hemoglobin 32.1, Mean Corpuscular Hemoglobin Concent 33.3, Red Cell Distribution Width 14.2, Platelet Count 220, Neutrophils (%) (Auto) 47.0, Lympho cytes (%) (Auto) 32.0, Monocytes (%) (Auto) 8.5H, Eosinophils (%) (Auto) 11.3H, Basophils (%) (Auto) 0.9, Neutrophils # (Auto) 2.8, Lymphocytes # (Auto) 1.9, Monocytes # (Auto) 0.5, Eosinophils # (Auto) 0.7H, Basophils # (Auto) 0.1, Nucleated Red Blood Cells % (auto) 0.0, Prothrombin Time 27.5H, Prothromb Time International Ratio 2.58, Anion Gap 6L, Glomerular Filtration Rate > 60.0, Blood Urea Nitrogen 20H, Creatinine 0.79, Sodium Level 140, Potassium Level 4.2, Chloride Level 105, Carbon Dioxide Level 29, Calcium Level 9.2 CBC/BMP Laboratory Tests 05/13/19 06:11 Red Blood Count 4.11, Mean Corpuscular Volume 96.4 H, Mean Corpuscular Hemoglobin 32.1, Mean Corpuscular Hemoglobin Concent 33.3, Red Cell Distribution Width 14.2, Neutrophils (%) (Auto) 47.0, Lymphocytes (%) (Auto) 32.0, Monocytes (%) (Auto) 8.5 H, Eosinophils (%) (Auto) 11.3 H, Basophils (%) (Auto) 0.9, N eutrophils # (Auto) 2.8, Lymphocytes # (Auto) 1.9, Monocytes # (Auto) 0.5, Eosinophils # (Auto) 0.7 H, Basophils # (Auto) 0.1, Calcium Level 9.2 JULIANNA MEDINA MD May 13, 2019 09:17
[2019-05-13 10:06] VITALS: BP 150/86
[2019-05-13] MEDS: WARFARIN SOD 2.5 MG TAB PO SCH (12:03)
[2019-05-13 14:00] VITALS: BP 139/74
[2019-05-13] MEDS: CYANOCOBALAMIN 500 MCG TAB PO SCH (20:57)
[2019-05-13] MEDS: VITAMIN D 1,000 INTERNATIONAL UNITS TABLET PO SCH (20:57)
[2019-05-13 21:55] VITALS: BP 138/74
[2019-05-14] MEDS: LEVOTHYROXINE 75MCG TABLET (0.075MG) PO SCH (05:50)
[2019-05-14 05:51] VITALS: BP 122/66
[2019-05-14 06:25] LABS: BASO % 0.7 % (0.0-1.0); EOS # 0.6 10^3/uL (0.0-0.50); EOS % 10.8 % (0.0-3.0); HEMOGLOBIN 14.1 g/dl (12.0-15.5); LYMPH # 1.7 10^3/uL (1.5-4.5); LYMPH % 29.4 % (24.0-44.0); MEAN CORPUSCULAR HEMOGLOBIN 32.9 pg (27.0-33.0); MEAN CORPUSCULAR HGB CONC 33.6 g/dl (32.0-36.5); MEAN CORPUSCULAR VOLUME 97.9 fl (80.0-96.0); MONO # 0.5 10^3/uL (0.0-0.8); MONO % 8.2 % (0.0-5.0); NEUTROPHILS # 2.9 10^3/uL (1.8-7.7); NEUTROPHILS % 50.5 % (36.0-66.0); PLATELET COUNT, AUTOMATED 238 10^3/uL (150-450); RED BLOOD COUNT 4.29 10^6/uL (4.00-5.40); WHITE BLOOD COUNT 5.6 10^3/uL (4.0-10.0)
[2019-05-14 06:38] LABS: INR 2.4
[2019-05-14 06:51] LABS: BLOOD UREA NITROGEN 22 MG/DL (7-18); CALCIUM LEVEL 9.3 MG/DL (8.8-10.2); CARBON DIOXIDE LEVEL 28 MEQ/L (21-32); CHLORIDE LEVEL 105 MEQ/L (98-107); CREATININE FOR GFR 0.78 MG/DL (0.55-1.30); GLOMERULAR FILTRATION RATE > 60.0 (>32); GLUCOSE, FASTING 94 MG/DL (70-100); POTASSIUM SERUM 4.1 MEQ/L (3.5-5.1); SODIUM LEVEL 140 MEQ/L (136-145)
[2019-05-14] MEDS: MIRALAX *UNIT DOSE* 17GM PACKET PO SCH (09:00)
[2019-05-14] MEDS: ESCITALOPRAM OXALATE 10 MG TAB (LEXAPRO) PO SCH (09:06)
[2019-05-14] MEDS: OMEPRAZOLE 20 MG CAP PO SCH ×2 (09:06→20:38)
[2019-05-14] MEDS: MOM 30ML SUSPENSION UDC PO SCH (09:06)
[2019-05-14] MEDS: ROSUVASTATIN 10 MG TAB (CRESTOR) PO SCH (09:06)
[2019-05-14] MEDS: DICLOFENAC EPOLAMINE 1.3 % PATCH TOP SCH (09:06)
[2019-05-14] MEDS: SENOKOT S TAB PO SCH ×2 (09:06→20:39)
[2019-05-14] MEDS: MAXZIDE PO SCH (09:07)
[2019-05-14] MEDS ORDERED: PERCOCET PO (11:33)
[2019-05-14] MEDS ORDERED: CYCL5TAB PO (11:33)
[2019-05-14] MEDS ORDERED: DICL13PA TOP (11:33)
[2019-05-14] MEDS: WARFARIN SOD 5 MG TAB PO SCH (12:08)
[2019-05-14] MEDS: PERCOCET 5MG/325MG TAB PO PRN ×2 (13:53→17:59)
[2019-05-14 14:51] VITALS: BP 140/70
[2019-05-14] MEDS: VITAMIN D 1,000 INTERNATIONAL UNITS TABLET PO SCH (20:37)
[2019-05-14] MEDS: NAPROXEN 250 MG TAB PO SCH (20:38)
[2019-05-14] MEDS: CYCLOBENZAPRINE 5MG TABLET PO PRN (20:38)
[2019-05-14] MEDS: CYANOCOBALAMIN 500 MCG TAB PO SCH (20:39)
--- NOTE | 2019-05-14 20:55 | IPNPDOC ---
Subjective Date Seen The patient was seen on 05/14/19. Subjective Chief Complaint/HPI Pateint's daughter Julianne was very concerned that she did not have her BRENTON and Sequentials on even though they had been ordered. i did explain that as she is on coumadin with therapeutic INR the chance of forming a clot is very low however she absolutely wanted them on. The nursing is aware and we have put them on her. Her Next issue was that the brace is not fitting her and that the pain has worsened after trying to wear it and keep it on and she has told her mother not to wear it. She wanted to know about other options. I spoke with Rhianna and she has asked Dave Jo to come and do a refitting . I also spoke with Dr Mccauley for a follow up with the patient and to discuses any other options available . However by that time patient and family had decided to sign out AMA as she was refused as an inpatient transfer by [facility]. So i let Dr Mccauley know that she was leaving. Later in the late afternoon i was informed by staff that the p atjohny will be staying as they could not arrange a medical transport for her. I asked the nursing staff to reach out again to Rhianna and Dr Mccauley to see if they would Kindly be able to follow up on her as her was now staying. Objective Physical Examination General Exam: Positive: Alert, Cooperative, No Acute Distress Eye Exam: Positive: PERRLA, Conjunctiva & lids normal, EOMI; Negative: Sclera icteric ENT Exam: Positive: Atraumatic, Mucous membr. moist/pink, Pharynx Normal Neck Exam: Positive: Supple; Negative: JVD, thyromegaly Chest Exam: Positive: Clear to auscultation, Normal air movement Heart Exam: Positive: Rate Normal, Regular Rhythm, Normal S1, Normal S2; Negative: Murmurs, Rubs Abdomen Exam: Positive: Normal bowel sounds, Soft; Negative: Tenderness, Hepatospenomegaly Extremity Exam: Positive: Normal pulses; Negative: Clubbing, Cyanosis, Edema Skin Exam: Positive: Nl turgor and temperature; Negative: Rash, Breakdown Neuro Exam: Positive: Strength at 5/5 X4 ext, Normal Tone, Reflexes 2+ (in both the lower extremities), Other (planters down going. ) Assessment /Plan Assessment 78 y/o F with PMHx of bilateral knee osteoarthritis, Hx of Pulmonary Embolism on AC by Warfarin, Lumber spinal stenosis, obesity, hyperlipidemia, hypothyroid, hypertension, depression , GERD presented to the hospital after a mechanical fall on her back then inability to get up or stand or move. CT of lumber spine showed Acute compression fracture of T12 with retropulsion of fractured elements into the spinal canal reducing the anterior posterior diameter to 11.5 mm with mild cord impingement. Dextroscoliosis lower lumbar spine. 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 Acute compression fracture of T12 with retropulsion of fractured elements into the spinal canal with less than 30% reduction in spinal canal s/p mechanical fall seen by ortho advised TSLO brace However patient has not been able to tolerate it. this am her back pain is worse . She refused to wear it any longer Daughter wanted her to be trnaferred to [facility]. I called [facility] transfer and spoke with Dr Weaver from [facility] and as per him they will not be accepting her as an inpatient to inpatient transfer Patient and family wanted to sign out AMA however they could not arrange for an ambulance for transport. started on naproxen, lidoderm patch, continue Flexeril and percocets prn if no improvement over the weekend will consult pain management . Have discussed with Dr Mccauley he would see if she would be able to tolerate a different kind of brace if she does not leave AMA PT with brace. 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 Constipation aggressive bowel regimen Hyperlipidemia continue statin Bilateral knee osteoarthritis, will resume calcium and osteobioflex on discharge pain controlled today Hx of Pulmonary Embolism on AC by Warfarin. Hypothyroid synthroid Hypertension on diuretics HCTZ/triamterone Depression lexapro GERD continue PPI Plan/VTE VTE Prophylaxis Ordered?: Yes VS, I&O, 24H, Fishbone Vital Signs/I&O Vital Signs Date Time Temp Pulse Resp B/P (MAP) Pulse Ox O2 Delivery O2 Flow Rate FiO2 05/14/19 18:44 18 05/14/19 14:51 97.8 73 140/70 (93) 94 I&O- Last 24 Hours up to 6 AM 05/14/19 05:59 Intake Total 1460 ml Output Total 1100 ml Balance 360 ml Laboratory Data 24H LABS Laboratory Tests 2 05/14/19 05:58: Immature Granulocyte % (Auto) 0.4, White Blood Count 5.6, Red Blood Count 4.29, Hemoglobin 14.1, Hematocrit 42.0, Mean Corpuscular Volume 97.9H, Mean Corpuscular Hemoglobin 32.9, Mean Corpuscular Hemoglobin Concent 33.6, Red Cell Distribution Width 14.2, Platelet Count 238, Neutrophils (%) (Auto) 50.5, Lymphocytes (%) (Auto) 29.4, Monocytes (%) (Auto) 8.2H, Eosinophils (%) (Auto) 10.8H, Basophils (%) (Auto) 0.7, Neutrophils # (Auto) 2.9, Lymphocytes # (Auto) 1.7, Monocytes # (Auto) 0.5, Eosinophils # (Auto) 0.6H, Basophils # (Auto) 0.0, Nucleated Red Blood Cells % (auto) 0.0, Prothrombin Time 26.0H, Prothromb Time International Ratio 2.40, Anion Gap 7L, Glomerular Filtration Rate > 60.0, Blood Urea Nitrogen 22H, Creatinine 0.78, Sodium Level 140, Potassium Level 4.1, Chloride Level 105, Carbon Dioxide Level 28, Calcium Level 9.3 CBC/BMP Laboratory Tests 05/14/19 05:58 Red Blood Count 4.29, Mean Corpuscular Volume 97.9 H, Mean Corpuscular Hemoglobin 32.9, Mean Corpuscular Hemoglobin Concent 33.6, Red Cell Distribution Width 14.2, Neutrophils (%) (Auto) 50.5, Lymphocytes (%) (Auto) 29.4, Monocytes (%) (Auto) 8.2 H, Eosinophils (%) (Auto) 10.8 H, Basophils (%) (Auto) 0.7, Neutrophils # (Auto) 2.9, Lymphocytes # (Auto) 1.7, Monocytes # (Auto) 0.5, Eosinophils # (Auto) 0.6 H, Basophils # (Auto) 0.0, Calcium Level 9.3 JULIANNA MEDINA MD May 14, 2019 20:55
[2019-05-14] MEDS: LIDOCAINE 5% (LIDODERM) PATCH TD SCH (20:58)
[2019-05-14 22:04] VITALS: BP 137/73
[2019-05-15 05:52] LABS: BASO % 0.6 % (0.0-1.0); EOS # 0.8 10^3/uL (0.0-0.50); EOS % 11.5 % (0.0-3.0); HEMATOCRIT 42.4 % (36.0-47.0); HEMOGLOBIN 14.2 g/dl (12.0-15.5); LYMPH % 28.1 % (24.0-44.0); MEAN CORPUSCULAR HEMOGLOBIN 32.7 pg (27.0-33.0); MEAN CORPUSCULAR HGB CONC 33.5 g/dl (32.0-36.5); MEAN CORPUSCULAR VOLUME 97.7 fl (80.0-96.0); MONO # 0.6 10^3/uL (0.0-0.8); MONO % 8.8 % (0.0-5.0); NEUTROPHILS # 3.5 10^3/uL (1.8-7.7); NEUTROPHILS % 50.7 % (36.0-66.0); PLATELET COUNT, AUTOMATED 232 10^3/uL (150-450); RED BLOOD COUNT 4.34 10^6/uL (4.00-5.40); WHITE BLOOD COUNT 6.9 10^3/uL (4.0-10.0)
[2019-05-15 06:00] VITALS: BP 125/86
[2019-05-15 06:05] LABS: INR 2.34; PROTHROMBIN TIME 25.5 SECONDS (11.8-14.0)
[2019-05-15] MEDS: LEVOTHYROXINE 75MCG TABLET (0.075MG) PO SCH (06:09)
[2019-05-15 06:19] LABS: BLOOD UREA NITROGEN 26 MG/DL (7-18); CALCIUM LEVEL 9.7 MG/DL (8.8-10.2); CARBON DIOXIDE LEVEL 28 MEQ/L (21-32); CHLORIDE LEVEL 105 MEQ/L (98-107); CREATININE FOR GFR 0.87 MG/DL (0.55-1.30); GLOMERULAR FILTRATION RATE > 60.0 (>32); GLUCOSE, FASTING 100 MG/DL (70-100); POTASSIUM SERUM 4.3 MEQ/L (3.5-5.1); SODIUM LEVEL 139 MEQ/L (136-145)
--- NOTE | 2019-05-15 07:59 | IPNPDOC ---
Subjective Date Seen The patient was seen on 05/15/19. Subjective Chief Complaint/HPI Says the pain is better controlled today. The lidoderm patches on both the posterior SI joints seem to be helping. No bowel movement for [address] lumber spine shows psuedoarticulation of the transverse process of the L5 transverse process to the left hipolito sacrum, will get a full sacrum and coccyx Xray. Objective Physical Examination General Exam: Positive: Alert, Cooperative, No Acute Distress Eye Exam: Positive: PERRLA, Conjunctiva & lids normal, EOMI; Negative: Sclera icteric ENT Exam: Positive: Atraumatic, Mucous membr. moist/pink, Pharynx Normal Neck Exam: Positive: Supple; Negative: JVD, thyromegaly Chest Exam: Positive: Clear to auscultation, Normal air movement Heart Exam: Positive: Rate Normal, Regular Rhythm, Normal S1, Normal S2; Negative: Murmurs, Rubs Abdomen Exam: Positive: Normal bowel sounds, Soft; Negative: Tenderness, Hepatospenomegaly Extremity Exam: Positive: Normal pulses; Negative: Clubbing, Cyanosis, Edema Skin Exam: Positive: Nl turgor and temperature; Negative: Rash, Breakdown Neuro Exam: Positive: Strength at 5/5 X4 ext, Normal Tone, Reflexes 2+ (in both the lower extremities), Other (planters down going. ) Assessment /Plan Assessment 78 y/o F with PMHx of bilateral knee osteoarthritis, Hx of Pulmonary Embolism on AC by Warfarin, Lumber spinal stenosis, obesity, hyperlipidemia, hypothyroid, hypertension, depression , GERD presented to the hospital after a mechanical fall on her back then inability to get up or stand or move. CT of lumber spine showed Acute compression fracture of T12 with retropulsion of fractured elements into the spinal canal reducing the anterior posterior diameter to 11.5 mm with mild cord impingement. Dextroscoliosis lower lumbar spine. 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 Acute compression fracture of T12 with retropulsion of fractured elements into the spinal canal with less than 30% reduction in spinal canal s/p mechanical fall seen by ortho advised LO brace However patient has not been able to tolerate it. this am her back pain is worse. She refused to wear it any longer Daughter wanted her to be transferred to [facility]. I called [facility] transfer and spoke with Dr Weaver from [facility] and as per him they will not be accepting her as an inpatient to inpatient transfer Patient and family wanted to sign out AMA however they could not arrange for an ambulance for transport. started on naproxen, lidoderm patch, continue Flexeril and percocets prn if no improvement over the weekend will consult pain management . Reevaluated by Dr Mccauley yesterday. Her TSLO brace was also refitted and adjusted by Dave Jo. PT with brace. 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 Constipation aggressive bowel regimen Hyperlipidemia continue statin Bilateral knee osteoarthritis, will resume calcium and osteobioflex on discharge pain controlled today Hx of Pulmonary Embolism on AC by Warfarin. Hypothyroid synthroid Hypertension on diuretics HCTZ/triamterone Depression lexapro GERD continue PPI Plan/VTE VTE Prophylaxis Ordered?: Yes VS, I&O, 24H, Fishbone Vital Signs/I&O Vital Signs Date Time Temp Pulse Resp B/P (MAP) Pulse Ox O2 Delivery O2 Flow Rate FiO2 05/15/19 06:00 98.6 73 14 125/86 (99) 91 I&O- Last 24 Hours up to 6 AM 05/15/19 06:00 Intake Total 900 ml Output Total 695 ml Balance 205 ml Laboratory Data 24H LABS Laboratory Tests 2 05/15/19 05:36: Immature Granulocyte % (Auto) 0.3, White Blood Count 6.9, Red Blood Count 4.34, Hemoglobin 14.2, Hematocrit 42.4, Mean Corpuscular Volume 97.7H, Mean Corpuscular Hemoglobin 32.7, Mean Corpuscular Hemoglobin Concent 33.5, Red Cell Distribution Width 14.2, Platelet Count 232, Neutrophils (%) (Auto) 50.7, Lymphocytes (%) (Auto) 28.1, Monocytes (%) (Auto) 8.8H, Eosinophils (%) (Auto) 11.5H, Basophils (%) (Auto) 0.6, Neutrophils # (Auto) 3.5, Lymphocytes # (Auto) 2.0, Monocytes # (Auto) 0.6, Eosinophils # (Auto) 0.8H, Basophils # (Auto) 0.0, Nucleated Red Blood Cells % (auto) 0.0, Prothrombin Time 25.5H, Prothromb Time International Ratio 2.34, Anion Gap 6L, Glomerular Filtration Rate > 60.0, Blood Urea Nitrogen 26H, Creatinine 0.87, Sodium Level 139, Potassium Level 4.3, Chloride Level 105, Carbon Dioxide Level 28, Calcium Level 9.7 CBC/BMP Laboratory Tests 05/15/19 05:36 Red Blood Count 4.34, Mean Corpuscular Volume 97.7 H, Mean Corpuscular Hemoglobin 32.7, Mean Corpuscular Hemoglobin Concent 33.5, Red Cell Distribution Width 14.2, Neutrophils (%) (Auto) 50.7, Lymphocytes (%) (Auto) 28.1, Monocytes (%) (Auto) 8.8 H, Eosinophils (%) (Auto) 11.5 H, Basophils (%) (Auto) 0.6, Neutrophils # (Auto) 3.5, Lymphocytes # (Auto) 2.0, Monocytes # (Auto) 0.6, Eosinophils # (Auto) 0.8 H, Basophils # (Auto) 0.0, Calcium Level 9.7 JULIANNA MEDINA MD May 15, 2019 07:59
[2019-05-15] MEDS: MIRALAX *UNIT DOSE* 17GM PACKET PO SCH (09:00)
--- NOTE | 2019-05-15 09:36 | REP ---
Clinical: Trauma. Technique: AP and lateral views of the sacrum and coccyx. Findings: Osteopenia and degenerative changes limit evaluation. No obvious acute fracture or subluxation noted. Impression: Limited by osteopenia and degenerative changes. No obvious acute fracture or subluxation. Electronically Signed by Matthew Mazariegos MD 05/15/2019 09:27 A
[2019-05-15] MEDS: ROSUVASTATIN 10 MG TAB (CRESTOR) PO SCH (09:52)
[2019-05-15] MEDS: OMEPRAZOLE 20 MG CAP PO SCH ×2 (09:52→21:04)
[2019-05-15] MEDS: SENOKOT S TAB PO SCH ×2 (09:52→21:04)
[2019-05-15] MEDS: MOM 30ML SUSPENSION UDC PO SCH (09:52)
[2019-05-15] MEDS: BISACODYL 10 MG SUPP PR SCH (09:52)
[2019-05-15] MEDS: NAPROXEN 250 MG TAB PO SCH ×2 (09:53→21:05)
[2019-05-15] MEDS: PERCOCET 5MG/325MG TAB PO PRN ×2 (09:54→17:36)
[2019-05-15] MEDS: ESCITALOPRAM OXALATE 10 MG TAB (LEXAPRO) PO SCH (09:54)
[2019-05-15] MEDS: **NOTE PATIENT COMMENT** MISC XX SCH (09:56)
[2019-05-15] MEDS: MAXZIDE PO SCH (09:56)
[2019-05-15] MEDS: WARFARIN SOD 5 MG TAB PO SCH (13:15)
[2019-05-15 14:00] VITALS: BP 123/84
[2019-05-15] MEDS: CYANOCOBALAMIN 500 MCG TAB PO SCH (21:04)
[2019-05-15] MEDS: VITAMIN D 1,000 INTERNATIONAL UNITS TABLET PO SCH (21:04)
[2019-05-15] MEDS: LIDOCAINE 5% (LIDODERM) PATCH TD SCH (21:05)
[2019-05-15 22:00] VITALS: BP_SYST 120; BP_SYST 63; BP_DIAS 38; BP_DIAS 68
[2019-05-16] MEDS: LEVOTHYROXINE 75MCG TABLET (0.075MG) PO SCH (05:55)
[2019-05-16 06:00] VITALS: BP 149/78
[2019-05-16 07:42] LABS: BASO % 0.5 % (0.0-1.0); EOS # 0.8 10^3/uL (0.0-0.50); EOS % 13.9 % (0.0-3.0); HEMATOCRIT 40.9 % (36.0-47.0); HEMOGLOBIN 13.8 g/dl (12.0-15.5); LYMPH # 1.7 10^3/uL (1.5-4.5); LYMPH % 28.1 % (24.0-44.0); MEAN CORPUSCULAR HEMOGLOBIN 33.2 pg (27.0-33.0); MEAN CORPUSCULAR HGB CONC 33.7 g/dl (32.0-36.5); MEAN CORPUSCULAR VOLUME 98.3 fl (80.0-96.0); MONO # 0.5 10^3/uL (0.0-0.8); MONO % 8.9 % (0.0-5.0); NEUTROPHILS # 2.9 10^3/uL (1.8-7.7); NEUTROPHILS % 48.3 % (36.0-66.0); PLATELET COUNT, AUTOMATED 233 10^3/uL (150-450); RED BLOOD COUNT 4.16 10^6/uL (4.00-5.40)
[2019-05-16 08:01] LABS: BLOOD UREA NITROGEN 27 MG/DL (7-18); CALCIUM LEVEL 9.3 MG/DL (8.8-10.2); CARBON DIOXIDE LEVEL 30 MEQ/L (21-32); CHLORIDE LEVEL 107 MEQ/L (98-107); GLOMERULAR FILTRATION RATE > 60.0 (>32); GLUCOSE, FASTING 97 MG/DL (70-100); POTASSIUM SERUM 4.1 MEQ/L (3.5-5.1); SODIUM LEVEL 141 MEQ/L (136-145)
[2019-05-16 08:03] LABS: INR 2.61; PROTHROMBIN TIME 27.8 SECONDS (11.8-14.0)
--- NOTE | 2019-05-16 08:06 | IPNPDOC ---
Subjective Date Seen The patient was seen on 05/16/19. Subjective Chief Complaint/HPI Her pain in localized to the left posterior sacroilliac joint rather than the T12 vertebral level. Says the lidoderm patch is helping. She did ambulate with the brace on and sit with it for an hour yesterday. SHe had a big owel movement yesterday. No fever or chills, no chest pain or SOB. Objective Physical Examination General Exam: Positive: Alert, Cooperative, No Acute Distress Eye Exam: Positive: PERRLA, Conjunctiva & lids normal, EOMI; Negative: Sclera icteric ENT Exam: Positive: Atraumatic, Mucous membr. moist/pink, Pharynx Normal Neck Exam: Positive: Supple; Negative: JVD, thyromegaly Chest Exam: Positive: Clear to auscultation, Normal air movement Heart Exam: Positive: Rate Normal, Regular Rhythm, Normal S1, Normal S2; Negative: Murmurs, Rubs Abdomen Exam: Positive: Normal bowel sounds, Soft; Negative: Tenderness, Hepatospenomegaly Extremity Exam: Positive: Normal pulses; Negative: Clubbing, Cyanosis, Edema Skin Exam: Positive: Nl turgor and temperature; Negative: Rash, Breakdown Neuro Exam: Positive: Strength at 5/5 X4 ext, Normal Tone, Reflexes 2+ (in both the lower extremities), Other (planters down going. ) Assessment /Plan Assessment 78 y/o F with PMHx of bilateral knee osteoarthritis, Hx of Pulmonary Embolism on AC by Warfarin, Lumber spinal stenosis, obesity, hyperlipidemia, hypothyroid, hypertension, depression , GERD presented to the hospital after a mechanical fall on her back then inability to get up or stand or move. CT of lumber spine showed Acute compression fracture of T12 with retropulsion of fractured e lements into the spinal canal reducing the anterior posterior diameter to 11.5 mm with mild cord impingement. Dextroscoliosis lower lumbar spine. 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 Acute compression fracture of T12 with retropulsion of fractured elements into the spinal canal with less than 30% reduction in spinal canal s/p mechanical fall seen by ortho advised SANDRA weinstein Daughter wanted her to be transferred to [facility]. I called [facility] transfer and spoke with Dr Weaver from [facility] and as per him they will not be accepting her as an inpatient to inpatient transfer Patient and family wanted to sign out AMA however they could not arrange for an ambulance for transport. started on naproxen, lidoderm patch, continue Flexeril and percocets prn if no improvement over the weekend will consult pain management . Her TSLO brace was refitted and adjusted by Dave Jo. PT with brace. Low back pain she point to the left posterior sacroilliac joint as the point of pain xray of the scarum and coccyx showed osteopenia and OA. 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 At the level of T12 there is no pain or discomfort at all . This leads me to suspect the T12 fracture is more chronic in nature than acute. continue lidoderm patch and naproxen. 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 Constipation aggressive bowel regimen Hyperlipidemia continue statin Bilateral knee osteoarthritis, will resume calcium and osteobioflex on discharge pain controlled today Hx of Pulmonary Embolism on AC by Warfarin. Hypothyroid synthroid Hypertension on diuretics HCTZ/triamterone Depression lexapro GERD continue PPI Disposition: Home after PT clearance. Plan/VTE VTE Prophylaxis Ordered?: Yes VS, I&O, 24H, Sarah Vital Signs/I&O Vital Signs Date Time Temp Pulse Resp B/P (MAP) Pulse Ox O2 Delivery O2 Flow Rate FiO2 05/16/19 06:00 98.9 66 18 149/78 (101) 92 I&O- Last 24 Hours up to 6 AM 05/16/19 05:59 Intake Total 870 ml Output Total 1475 ml Balance -605 ml Laboratory Data 24H LABS Laboratory Tests 2 05/16/19 06:56: Immature Granulocyte % (Auto) 0.3, White Blood Count 6.0, Red Blood Count 4.16, Hemoglobin 13.8, Hematocrit 40.9, Mean Corpuscular Volume 98.3H, Mean Corpuscular Hemoglobin 33.2H, Mean Corpuscular Hemoglobin Concent 33.7, Red Cell Distribution Width 14.4, Platelet Count 233, Neutrophils (%) (Auto) 48.3, Lymph ocytes (%) (Auto) 28.1, Monocytes (%) (Auto) 8.9H, Eosinophils (%) (Auto) 13.9H, Basophils (%) (Auto) 0.5, Neutrophils # (Auto) 2.9, Lymphocytes # (Auto) 1.7, Monocytes # (Auto) 0.5, Eosinophils # (Auto) 0.8H, Basophils # (Auto) 0.0, Nucleated Red Blood Cells % (auto) 0.0 CBC/BMP Laboratory Tests 05/16/19 06:56 Red Blood Count 4.16, Mean Corpuscular Volume 98.3 H, Mean Corpuscular Hemoglobin 33.2 H, Mean Corpuscular Hemoglobin Concent 33.7, Red Cell Distribution Width 14.4, Neutrophils (%) (Auto) 48.3, Lymphocytes (%) (Auto) 28.1, Monocytes (%) (Auto) 8.9 H, Eosinophils (%) (Auto) 13.9 H, Basophils (%) (Auto) 0.5, Neutrophils # (Auto) 2.9, Lymphocytes # (Auto) 1.7, Monocytes # (Auto) 0.5, Eosinophils # (Auto) 0.8 H, Basophils # (Auto) 0.0 JULIANNA MEDINA MD May 16, 2019 08:06
[2019-05-16] MEDS: NAPROXEN 250 MG TAB PO SCH ×2 (08:17→21:17)
[2019-05-16] MEDS: ESCITALOPRAM OXALATE 10 MG TAB (LEXAPRO) PO SCH (08:17)
[2019-05-16] MEDS: ROSUVASTATIN 10 MG TAB (CRESTOR) PO SCH (08:17)
[2019-05-16] MEDS: PERCOCET 5MG/325MG TAB PO PRN ×3 (08:18→21:18)
[2019-05-16] MEDS: OMEPRAZOLE 20 MG CAP PO SCH ×2 (08:18→21:17)
[2019-05-16] MEDS: SENOKOT S TAB PO SCH ×2 (08:18→21:00)
[2019-05-16] MEDS: MAXZIDE PO SCH (08:18)
[2019-05-16] MEDS: BISACODYL 10 MG SUPP PR SCH (08:19)
[2019-05-16] MEDS: MOM 30ML SUSPENSION UDC PO SCH (08:22)
[2019-05-16] MEDS: **NOTE PATIENT COMMENT** MISC XX SCH (08:23)
[2019-05-16] MEDS: MIRALAX *UNIT DOSE* 17GM PACKET PO SCH (08:23)
[2019-05-16] MEDS: WARFARIN SOD 5 MG TAB PO SCH (13:18)
[2019-05-16 14:00] VITALS: BP 121/83
[2019-05-16 20:00] VITALS: BP 155/83
[2019-05-16] MEDS: CYANOCOBALAMIN 500 MCG TAB PO SCH (21:17)
[2019-05-16] MEDS: VITAMIN D 1,000 INTERNATIONAL UNITS TABLET PO SCH (21:17)
[2019-05-16] MEDS: LIDOCAINE 5% (LIDODERM) PATCH TD SCH (21:18)
[2019-05-16 22:00] VITALS: BP 155/83
[2019-05-17] VITALS (7 sets, daily range): BP systolic 119–176; BP diastolic 55–90
[2019-05-17] MEDS: LEVOTHYROXINE 75MCG TABLET (0.075MG) PO SCH (05:40)
[2019-05-17 06:25] LABS: BASO # 0.1 10^3/uL (0.0-0.2); BASO % 0.8 % (0.0-1.0); EOS # 0.9 10^3/uL (0.0-0.50); EOS % 14.3 % (0.0-3.0); HEMATOCRIT 40.2 % (36.0-47.0); HEMOGLOBIN 13.5 g/dl (12.0-15.5); LYMPH % 32.3 % (24.0-44.0); MEAN CORPUSCULAR HEMOGLOBIN 32.8 pg (27.0-33.0); MEAN CORPUSCULAR HGB CONC 33.6 g/dl (32.0-36.5); MEAN CORPUSCULAR VOLUME 97.8 fl (80.0-96.0); MONO # 0.5 10^3/uL (0.0-0.8); MONO % 7.6 % (0.0-5.0); NEUTROPHILS # 2.8 10^3/uL (1.8-7.7); NEUTROPHILS % 44.7 % (36.0-66.0); PLATELET COUNT, AUTOMATED 236 10^3/uL (150-450); RED BLOOD COUNT 4.11 10^6/uL (4.00-5.40); WHITE BLOOD COUNT 6.3 10^3/uL (4.0-10.0)
[2019-05-17 06:47] LABS: BLOOD UREA NITROGEN 25 MG/DL (7-18); CALCIUM LEVEL 9.4 MG/DL (8.8-10.2); CARBON DIOXIDE LEVEL 29 MEQ/L (21-32); CHLORIDE LEVEL 105 MEQ/L (98-107); CREATININE FOR GFR 0.89 MG/DL (0.55-1.30); GLOMERULAR FILTRATION RATE > 60.0 (>32); GLUCOSE, FASTING 87 MG/DL (70-100); SODIUM LEVEL 140 MEQ/L (136-145)
[2019-05-17 07:38] LABS: INR 3.19; PROTHROMBIN TIME 32.6 SECONDS (11.8-14.0)
[2019-05-17] MEDS: NAPROXEN 250 MG TAB PO SCH ×2 (08:29→20:42)
[2019-05-17] MEDS: MAXZIDE PO SCH (08:29)
[2019-05-17] MEDS: OMEPRAZOLE 20 MG CAP PO SCH ×2 (08:30→20:43)
[2019-05-17] MEDS: PERCOCET 5MG/325MG TAB PO PRN ×3 (08:30→20:43)
[2019-05-17] MEDS: ROSUVASTATIN 10 MG TAB (CRESTOR) PO SCH (08:30)
[2019-05-17] MEDS: ESCITALOPRAM OXALATE 10 MG TAB (LEXAPRO) PO SCH (08:30)
[2019-05-17] MEDS: BISACODYL 10 MG SUPP PR SCH (08:31)
[2019-05-17] MEDS: MOM 30ML SUSPENSION UDC PO SCH (08:31)
[2019-05-17] MEDS: MIRALAX *UNIT DOSE* 17GM PACKET PO SCH (08:31)
[2019-05-17] MEDS: SENOKOT S TAB PO SCH ×2 (08:31→20:43)
[2019-05-17] MEDS: **NOTE PATIENT COMMENT** MISC XX SCH (08:32)
[2019-05-17] MEDS: WARFARIN SOD 2.5 MG TAB PO SCH (12:24)
[2019-05-17] MEDS: WARFARIN SOD 5 MG TAB PO SCH (12:24)
[2019-05-17] MEDS: CYCLOBENZAPRINE 5MG TABLET PO PRN (15:05)
--- NOTE | 2019-05-17 18:24 | IPNPDOC ---
Subjective Date Seen The patient was seen on 05/17/19. Subjective Chief Complaint/HPI 78f with hx thyroid disease, pe on coumadin, admitted with back pain. pt reporting improvement in pain. Expressing her desire to be discharged home. However family reporting they are not currently capable of caring for her at home. Full 10pt ROS was performed and negative except as documented above Objective Physical Examination General Exam: Positive: Alert, Cooperative, No Acute Distress Eye Exam: Positive: PERRLA, Conjunctiva & lids normal, EOMI; Negative: Sclera icteric ENT Exam: Positive: Atraumatic, Mucous membr. moist/pink, Pharynx Normal Neck Exam: Positive: Supple; Negative: JVD, thyromegaly Chest Exam: Positive: Clear to auscultation, Normal air movement Heart Exam: Positive: Rate Normal, Regular Rhythm, Normal S1, Normal S2; Negative: Murmurs, Rubs Abdomen Exam: Positive: Normal bowel sounds, Soft; Negative: Tenderness, Hepatospenomegaly Extremity Exam: Positive: Normal pulses; Negative: Clubbing, Cyanosis, Edema Skin Exam: Positive: Nl turgor and temperature; Negative: Rash, Breakdown Neuro Exam: Positive: Strength at 5/5 X4 ext, Normal Tone, Reflexes 2+ (in both the lower extremities), Other (planters down going. ) Assessment /Plan Assessment 78f p/w back pain back pain found to have an acute t12 compression fracture this however does not seem to correlate with where she is feeling the pain She has been fitted for a TLSO brace pain is improved with brace and current regimen SW working with family for alternative discharge arrangements thyroid stable continue synthroid PE continue coumadin Plan/VTE VTE Prophylaxis Ordered?: Yes VS, I&O, 24H, Fishbone Vital Signs/I&O Vital Signs Date Time Temp Pulse Resp B/P (MAP) Pulse Ox O2 Delivery O2 Flow Rate FiO2 05/17/19 14:54 159/82 (107) 05/17/19 14:32 18 05/17/19 14:00 98.6 82 92 I&O- Last 24 Hours up to 6 AM 05/17/19 06:00 Intake Total 1510 ml Output Total 1500 ml Balance 10 ml Laboratory Data 24H LABS Laboratory Tests 2 05/17/19 05:55: Immature Granulocyte % (Auto) 0.3, White Blood Count 6.3, Red Blood Count 4.11, Hemoglobin 13.5, Hematocrit 40.2, Mean Corpuscular Volume 97.8H, Mean Corpuscular Hemoglobin 32.8, Mean Corpuscular Hemoglobin Concent 33.6, Red Cell Distribution Width 14.1, Platelet Count 236, Neutrophils (%) (Auto) 44.7, Lymphocytes (%) (Auto) 32.3, Monocytes (%) (Auto) 7.6H, Eosinophils (%) (Auto) 14.3H, Basophils (%) (Auto) 0.8, Neutrophils # (Auto) 2.8, Lymphocytes # (Auto) 2.0, Monocytes # (Auto) 0.5, Eosinophils # (Auto) 0.9H, Basophils # (Auto) 0.1, Nucleated Red Blood Cells % (auto) 0.0, Prothrombin Time 32.6H, Prothromb Time International Ratio 3.19, Anion Gap 6L, Glomerular Filtration Rate > 60.0, Blood Urea Nitrogen 25H, Creatinine 0.89, Sodium Level 140, Potassium Level 4.0, Chloride Level 105, Carbon Dioxide Level 29, Calcium Level 9.4 CBC/BMP Laboratory Tests 05/17/19 05:55 Red Blood Count 4.11, Mean Corpuscular Volume 97.8 H, Mean Corpuscular Hemoglobin 32.8, Mean Corpuscular Hemoglobin Concent 33.6, Red Cell Distribution Width 14.1, Neutrophils (%) (Auto) 44.7, Lymphocytes (%) (Auto) 32.3, Monocytes (%) (Auto) 7.6 H, Eosinophils (%) (Auto) 14.3 H, Basophils (%) (Auto) 0.8, Neutrophils # (Auto) 2.8, Lymphocytes # (Auto) 2.0, Monocytes # (Auto) 0.5, Eosinophils # (Auto) 0.9 H, Basophils # (Auto) 0.1, Calcium Level 9.4 JOHN CHAPA MD May 17, 2019 18:24
[2019-05-17] MEDS: VITAMIN D 1,000 INTERNATIONAL UNITS TABLET PO SCH (20:42)
[2019-05-17] MEDS: CYANOCOBALAMIN 500 MCG TAB PO SCH (20:42)
[2019-05-17] MEDS: LIDOCAINE 5% (LIDODERM) PATCH TD SCH (20:43)
[2019-05-18] MEDS: PERCOCET 5MG/325MG TAB PO PRN (06:00)
[2019-05-18] MEDS: LEVOTHYROXINE 75MCG TABLET (0.075MG) PO SCH (06:00)
[2019-05-18 06:01] VITALS: BP 145/81
[2019-05-18] MEDS: **NOTE PATIENT COMMENT** MISC XX SCH (09:00)
[2019-05-18] MEDS: MIRALAX *UNIT DOSE* 17GM PACKET PO SCH (09:00)
[2019-05-18] MEDS: MOM 30ML SUSPENSION UDC PO SCH (09:00)
[2019-05-18] MEDS: BISACODYL 10 MG SUPP PR SCH (10:04)
[2019-05-18] MEDS: MAXZIDE PO SCH (10:04)
[2019-05-18] MEDS: ESCITALOPRAM OXALATE 10 MG TAB (LEXAPRO) PO SCH (10:04)
[2019-05-18] MEDS: ROSUVASTATIN 10 MG TAB (CRESTOR) PO SCH (10:04)
[2019-05-18] MEDS: OMEPRAZOLE 20 MG CAP PO SCH (10:05)
[2019-05-18] MEDS: NAPROXEN 250 MG TAB PO SCH (10:05)
[2019-05-18] MEDS: SENOKOT S TAB PO SCH (10:05)
[2019-05-18] MEDS ORDERED: LIDO5TD TD (12:13)
[2019-05-18] MEDS: WARFARIN SOD 5 MG TAB PO SCH (12:26)
--- NOTE | 2019-05-18 16:48 | DS.PDOC ---
Discharge Summary General Date of Admission May 05, 2019 at 18:46 Date of Discharge 05/18/19 Discharge Summary PROCEDURES PERFORMED DURING STAY: [None]. ADMITTING DIAGNOSES: 1. . DISCHARGE DIAGNOSES: 1. . COMPLICATIONS/CHIEF COMPLAINT: Low Back Pain. 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 Pt fell at home, secondary to losing her balance. Subsequently she was not able to stand due to extreme pain. She denied LOC, dizziness, vertigo or lightheadedness. Denied any similar episode in the past. In the ED found to be in extreme pain with unremarkable lumbar Xray except for old T12 compression fracture. She was able to move LE, and denied bowel or bladder incontinence. Received 8mg morphine in the ED with moderate effect. Denied any N/V any respiratory distress. HOSPITAL COURSE: . DISCHARGE MEDICATIONS: Please see below. ALLERGIES: Please see below. PHYSICAL EXAMINATION ON DISCHARGE: VITAL SIGNS: Please see below. GENERAL: HEENT: NECK: CARDIOVASCULAR EXAMINATION: RESPIRATORY EXAMINATION: ABDOMINAL EXAMINATION: EXTREMITIES: SKIN: NEUROLOGICAL EXAMINATION: PSYCHIATRIC EXAMINATION: LABORATORY DATA: Please see below. IMAGING: PROGNOSIS: ACTIVITY: [As tolerated]. DIET: DISCHARGE PLAN: DISPOSITION: [facility]. DISCHARGE INSTRUCTIONS: 1. . ITEMS TO FOLLOWUP ON ON OUTPATIENT: 1. . DISCHARGE CONDITION: [Stable]. TIME SPENT ON DISCHARGE: Greater than 35 minutes. Vital Signs/I&Os Vital Signs Date Time Temp Pulse Resp B/P (MAP) Pulse Ox O2 Delivery O2 Flow Rate FiO2 05/18/19 06:30 18 05/18/19 06:01 96.9 73 145/81 (102) 92 I&O- Last 24 Hours up to 6 AM 05/18/19 06:00 Intake Total 1220 ml Output Total 200 ml Balance 1020 ml Discharge Medications Scheduled Calcium Carbonate (Calcium) 500 Mg Tablet, 500 MG PO QHS, (Reported) Cyanocobalamin (Vitamin B-12) (Vitamin B-12) 1,000 Mcg Tablet, 1,000 MCG PO QHS, (Reported) Escitalopram Oxalate (Escitalopram Oxalate) 10 Mg Tab, 10 MG PO DAILY, (Reported) Folic Acid (Folic Acid) 400 Mcg Tab, 400 MCG PO DAILY, (Reported) Glucosam/Davon-Msm1/C/Brian/Bosw (Osteo Bi-Flex Caplet) 1 Each Tablet, 2 TAB PO DAILY, (Reported) Levothyroxine Sodium (Levothyroxine Sodium) 75 Mcg Tab, 75 MCG PO DAILY, (Reported) Lidocaine (Lidocaine) 5% Adh..patch, 2 PATCH TD QHS Multivitamin (Multivitamins) 1 Each Tablet, 1 TAB PO QHS, (Reported) Omeprazole (Omeprazole) 20 Mg Cap, 20 MG PO DAILY, (Reported) Rosuvastatin Calcium (Rosuvastatin Calcium) 10 Mg Tab, 10 MG PO DAILY, (Reported) Triamterene/Hydrochlorothiazid (Triamterene-Hctz 37.5-25 mg Tb) 1 Tab Tab, 0.5 TAB PO DAILY, (Reported) Vitamin D (Vitamin D3) 1,000 Unit Tablet, 1,000 UNITS PO QHS, (Reported) Warfarin Sod (Coumadin) 1 Mg Tablet, 2.5 TAB PO 2XWK, (Reported) Mondays and at 12noon Warfarin Sod (Coumadin) 1 Mg Tablet, 5 TAB PO 5XW, (Reported) ,Fri,Fri,Sat,Sun at 12noon Scheduled PRN Cyclobenzaprine HCl (Cyclobenzaprine HCl) 5 Mg Tablet, 5 MG PO Q6HP PRN for SPASMS Oxycodone/Acetaminophen (Oxycodone-Acetaminophen 5-325) 1 Each Tablet, 1 TAB PO Q6HP PRN for MILD/MODERATE PAIN (PS 1-7) Allergies Coded Allergies: No Known Allergies (Verified , 03/04/18) REE GORDON MD May 18, 2019 16:48
== END 2019-05-18 12:55 | DRG 552 ==
LOC: EDBD 12:43 → M ED 12:43 → M ED INP 18:46 → M MS5PR 20:54
PROVIDERS: ADMIT Hospitalist; ATTEND Internal Medicine
DX: S22.080A Wedge compression fracture of T11-T12 vertebra, initial encounter for closed fracture (principal); G95.20 Unspecified cord compression; Z79.01 Long term (current) use of anticoagulants; Z86.711 Personal history of pulmonary embolism; W18.30XA Fall on same level, unspecified, initial encounter; Y92.009 Unspecified place in unspecified non-institutional (private) residence as the place of occurrence of the external cause; Z79.899 Other long term (current) drug therapy; K21.9 Gastro-esophageal reflux disease without esophagitis; E78.5 Hyperlipidemia, unspecified; M17.0 Bilateral primary osteoarthritis of knee; E03.9 Hypothyroidism, unspecified; I10 Essential (primary) hypertension; F32.9 Major depressive disorder, single episode, unspecified; K59.00 Constipation, unspecified

== ENCOUNTER → 2019-05-19 | Outpatient (REF) ==
[~2019-05-19] MED LIST changes: +CHOL100029 PO; +CYAN100049 PO; +CYCL5TAB PO; +DICL13PA TOP; +LIDO5TD TD; +MULT-40 PO; +OMEP1CAP73 PO; -OMEP20CA3 PO; +OSTETAB2 PO; +OYST1TAB PO; +PERCOCET PO; -ROSU10TA5 PO; +ROSU10TA6 PO; +WARF05TA PO
[2019-05-19 07:47] LABS: INR 3.2; PROTHROMBIN TIME 32.7 SECONDS (11.8-14.0)
[2019-05-19 08:05] LABS: THYROID STIMULATING HORMONE 7.84 uIU/ML (0.358-3.740)
[2019-05-19 08:06] LABS: TOTAL 25(OH) VITAMIN D 44.1 NG/ML (30.0-100.0)
== END ==
LOC: SKLAB5 07:24
PROVIDERS: ATTEND Internal Medicine
DX: I48.91 Unspecified atrial fibrillation (principal)

== ENCOUNTER → 2019-05-21 | Outpatient (REF) | payer MEDICARE, OTHER ==
[2019-05-21 07:45] LABS: INR 1.93; PROTHROMBIN TIME 21.8 SECONDS (11.8-14.0)
== END ==
LOC: SKLAB5 07:23
PROVIDERS: ATTEND Internal Medicine
DX: Z79.01 Long term (current) use of anticoagulants (principal)

== ENCOUNTER → 2019-05-27 | Outpatient (REF) ==
[~2019-05-27] MED LIST changes: -CHOL100029 PO; -OMEP1CAP73 PO; +OMEP20CA4 PO; +VITAD1000T PO
[2019-05-27 08:01] LABS: INR 3.39; PROTHROMBIN TIME 34.3 SECONDS (11.8-14.0)
== END ==
LOC: SKLAB5 07:42
PROVIDERS: ATTEND Internal Medicine
DX: Z79.01 Long term (current) use of anticoagulants (principal)

== ENCOUNTER → 2019-05-31 | Outpatient (REF) ==
[2019-05-30 08:51] LABS: INR 1.76; PROTHROMBIN TIME 20.3 SECONDS (11.8-14.0)
[~2019-05-31] MED LIST changes: +CHOL100029 PO; +OMEP1CAP73 PO; -OMEP20CA4 PO; -VITAD1000T PO
== END ==
LOC: SKLAB5 07:46
PROVIDERS: ATTEND Internal Medicine
DX: Z79.899 Other long term (current) drug therapy (principal)

== ENCOUNTER → 2019-06-03 | Outpatient (REF) ==
[~2019-06-03] MED LIST changes: -CHOL100029 PO; -OMEP1CAP73 PO; +OMEP20CA4 PO; +VITAD1000T PO
== END ==
LOC: SKLAB5 08:23
PROVIDERS: ATTEND Internal Medicine
DX: Z79.01 Long term (current) use of anticoagulants (principal)

== ENCOUNTER 2020-03-11 19:16 | Emergency (ER) | payer MEDICARE, OTHER ==
[~2020-03-11] VITALS: Ht 170.2 cm; Wt 77.7 kg
[~2020-03-11 19:16] MED LIST changes: +CHOL100029 PO; +OMEP1CAP73 PO; -OMEP20CA4 PO; -VITAD1000T PO
[2020-03-11] MEDS ORDERED: DULO1CAP5 (19:35)
[2020-03-11] MEDS ORDERED: LEVO88TA3 (19:35)
[2020-03-11] MEDS ORDERED: ARMO1TAB (19:35)
[2020-03-11] MEDS ORDERED: OMEP-218 (19:35)
[2020-03-11 20:12] LABS: BASO % 0.4 % (0.0-1.0); EOS # 0.4 10^3/uL (0.0-0.5); EOS % 4.1 % (0.0-3.0); HEMATOCRIT 46.8 % (36.0-47.0); HEMOGLOBIN 15.5 g/dl (12.0-15.5); LYMPH # 1.4 10^3/uL (1.5-5.0); LYMPH % 12.8 % (24.0-44.0); MEAN CORPUSCULAR HEMOGLOBIN 31.6 pg (27.0-33.0); MEAN CORPUSCULAR HGB CONC 33.1 g/dl (32.0-36.5); MEAN CORPUSCULAR VOLUME 95.3 fl (80.0-96.0); MONO # 0.4 10^3/uL (0.0-0.8); MONO % 4.1 % (0.0-5.0); NEUTROPHILS # 8.5 10^3/uL (1.5-8.5); NEUTROPHILS % 78.3 % (36.0-66.0); PLATELET COUNT, AUTOMATED 235 10^3/uL (150-450); RED BLOOD COUNT 4.91 10^6/uL (4.00-5.40); WHITE BLOOD COUNT 10.8 10^3/uL (4.0-10.0)
[2020-03-11 20:25] LABS: INR 1.69; PROTHROMBIN TIME 19.7 SECONDS (11.8-14.0)
[2020-03-11] MEDS ORDERED: PANTOPRAZOLE 40MG VIAL (C9113 PER 1) IV ONE (20:30)
[2020-03-11 20:49] LABS: ALBUMIN 4.3 GM/DL (3.2-5.2); BILIRUBIN,DIRECT 0.2 MG/DL (0.0-0.2); BILIRUBIN,TOTAL 0.7 MG/DL (0.2-1.0); FREE T4 0.65 NG/DL (0.76-1.46); THYROID STIMULATING HORMONE 19.6 uIU/ML (0.358-3.740); TOTAL PROTEIN 7.9 GM/DL (6.4-8.2)
[2020-03-11] MEDS ORDERED: ISOVUE-370 76% 100ML VIAL As Ordered ONE (20:51)
--- NOTE | 2020-03-11 21:46 | REPVR ---
PROCEDURE INFORMATION: Exam: CT Abdomen And Pelvis With Contrast Exam date and time: 03/11/2020 9:21 PM Age: 79 years old Clinical indication: Abdominal pain; Additional info: Abd pain, vomiting TECHNIQUE: Imaging protocol: Computed tomography of the abdomen and pelvis with intravenous contrast. Radiation optimization: All CT scans at this facility use at least one of these dose optimization techniques: automated exposure control; mA and/or kV adjustment per patient size (includes targeted exams where dose is matched to clinical indication); or iterative reconstruction. Contrast material: ISO 370; Contrast volume: 100 ml; Contrast route: IV; COMPARISON: PELVIS NON-OB COMPLETE US 04/04/2016 1:00 PM FINDINGS: Lungs: Mild left base and minimal right lower lobe fibro-atelectatic change adjacent to the large hernia. Liver: The liver attenuation is 85 Hounsfield units and the spleen is 137 Hounsfield units. Gallbladder and bile ducts: Minimal gallstone in the gallbladder. Pancreas: Normal. No ductal dilation. Spleen: Normal. No splenomegaly. Adrenals: Diffuse fullness of the left adrenal. Kidneys and ureters: Normal. No hydronephrosis. Stomach and bowel: Large hiatal hernia which contains most of the stomach as well as the splenic flexure of the colon. Appendix: A normal retrocecal appendix is seen. Intraperitoneal space: Unremarkable. No free air. No significant fluid collection. Vasculature: Unremarkable. No abdominal aortic aneurysm. Lymph nodes: Unremarkable. No enlarged lymph nodes. Bladder: Unremarkable as visualized. Reproductive: Status post hysterectomy. Bones/joints: Pedicular fusion from T12-L2 spanning a prominently compressed L1 segment with retropulsion which is greatest at the inferior aspect. There is laminectomy of L1 allowing for adequate size of the spinal canal. There are old fractures of the transverse processes of L1 . There is partial lumbarization of S1 with an S1-S2 disc. Soft tissues: Unremarkable. IMPRESSION: 1. Large hiatal hernia with most of the stomach in the chest. The diaphragmatic defect also contains the splenic flexure of the colon. 2. Mild left base and minimal right lower lobe fibro-atelectatic change adjacent to the large hiatal hernia. 3. Status post prominent compression of L1 with fusion from T12-L2. There is retropulsion of the compressed segment with laminectomy. There is partial lumbarization of S1 noted. 4. Fatty infiltration of the liver. 5. Minimal cholelithiasis. 6. Status post hysterectomy. 7. Diffuse fullness of the left adrenal which likely reflects hyperplasia. Electronically signed by: John Montez On 03/11/2020 21:46:32 PM
[2020-03-11] MEDS ORDERED: CARA1TAB6 PO (22:08)
[2020-03-11] MEDS ORDERED: PEPC1TAB5 PO (22:08)
[2020-03-11] MEDS ORDERED: PROT1TAB2 PO (22:08)
[2020-03-11] MEDS ORDERED: FAMOTIDINE 20 MG TAB PO ONE (22:15)
[2020-03-11] MEDS ORDERED: POTASSIUM CHLORIDE 10 MEQ SR TABLET PO ONE (22:15)
[2020-03-11] MEDS ORDERED: SUCRALFATE 1 GM TAB PO ONE (22:15)
[2020-03-11 22:37] VITALS: BP 161/84
--- NOTE | 2020-03-12 06:28 | ECGEPIP ---
[facility] - ED Test Date: 2020-03-11 Pat Name: TEO ELIZALDE Department: Room: - Gender: Female Rheumatologist: YU : 1940 Requested By: KEVIN Pedroza Order Number: [id number] Reading MD: Collin Menchaac Measurements Intervals [place] Rate: 91 P: 55 WV: 182 QRS: 36 QRSD: 80 T: 43 QT: 370 QTc: 456 Interpretive Statements SINUS RHYTHM NONSPECIFIC T-WAVE ABNORMALITY BORDERLINE PROLONGED QTC DELAYED R WAVE PROGRESSION NO PRIOR ECG FOR COMPARISON Electronically Signed on 03-12-2020 6:28:01 EDT by Collin Menchaca
--- NOTE | 2020-03-12 14:58 | ED PDOC ---
Post-Departure Follow-Up dr bah faxed formal report of ct abd/p for fu Collin Flores MD March 12, 2020 14:58
== END 2020-03-11 22:40 | disposition home or self-care (01) ==
LOC: M ED 19:16
DX: K44.9 Diaphragmatic hernia without obstruction or gangrene (principal); R11.2 Nausea with vomiting, unspecified; R19.7 Diarrhea, unspecified; K21.9 Gastro-esophageal reflux disease without esophagitis; Z86.711 Personal history of pulmonary embolism; Z79.01 Long term (current) use of anticoagulants
CPT/HCPCS: 74177; 80047; 80076; 83690; 84439; 84443; 85025; 85610; 86850; 86900; 86901; 93005; 96374; 99284; C9113; Q9967

== ENCOUNTER → 2020-04-19 | Outpatient (CLI) | payer MEDICARE, OTHER ==
[~2020-04-19] MED LIST changes: +ARMO1TAB; +CARA1TAB6 PO; +DULO1CAP5; +LEVO88TA3; +OMEP-218; +PEPC1TAB5 PO; +PROT1TAB2 PO
--- NOTE | 2020-04-19 16:31 | REP ---
REASON FOR EXAM: Evaluate hardware. COMPARISON EXAM: 05/05/2019 Since the last examination, transpedicular screws have been placed at the T11 and L1 levels bilaterally. There is a grade 4 compression fracture of T12. That too has developed since the last exam when it had a grade 2/3 appearance. The screws seen along the superior endplate of T11 may be, in fact, breaching that endplate. At least one screw does appear to be breaching, which is seen both on AP and lateral views. Degenerative facet joint changes are present at every level bilaterally. IMPRESSION: As above. Electronically Signed by Akhil Roman DO 04/19/2020 05:06 P
== END ==
LOC: M RAD 11:26
PROVIDERS: ATTEND Physician Assistant Medical
DX: M43.25 Fusion of spine, thoracolumbar region (principal); M48.54XA Collapsed vertebra, not elsewhere classified, thoracic region, initial encounter for fracture

== ENCOUNTER → 2020-10-19 | Outpatient (CLI) | payer MEDICARE, OTHER ==
--- NOTE | 2020-10-19 15:21 | REP ---
INDICATION: BACK PAIN UNSPEC LOCATION UNSPEC BACK PAIN LATERALITY. COMPARISON: Lumbar spine dated 05/05/2019. TECHNIQUE: There are four views 3 AP and single lateral projections. FINDINGS: There is surgical fusion of the thoracolumbar junction with pedicle screws and stabilization rods spanning T 9 to L3. This is an interval change. There is compression deformity of the T12 vertebral body that has progressed and now presents as vertebra plana. There has been antrum compression of the L3 vertebral body. There has been an L3 vertebral body vertebroplasty. This is an interval change. There is and degenerative disc disease at L4-5 and L5-S1, unchanged. There is thoracic scoliosis convex right measuring 7 degrees from the superior endplate of T4 to the inferior endplate of the 9. There is demineralization. There is thoracic kyphosis. There is grade 2/3 compression deformity of the T8 vertebral body. IMPRESSION: Scoliosis and other degenerative and postsurgical changes as described. <Electronically signed by Donnell Mcdowell > 10/19/20 [id number]
== END ==
LOC: M RAD 11:47
PROVIDERS: ATTEND Physician Assistant Medical
DX: M54.9 Dorsalgia, unspecified (principal); M43.25 Fusion of spine, thoracolumbar region; S22.000A Wedge compression fracture of unspecified thoracic vertebra, initial encounter for closed fracture

== ENCOUNTER → 2020-11-06 | Outpatient (CLI) | payer MEDICARE, OTHER ==
--- NOTE | 2020-11-06 12:00 | REP ---
INDICATION: STABLE BURST FRACTURE OF T9-T10 VETEBRA. COMPARISON: 10/19/2020 TECHNIQUE: AP and lateral views of the thoracolumbar spine. FINDINGS: Lane rods are in stable position spanning from mid thorax to L3. Osteopenia and chronic changes are again noted and stable. IMPRESSION: Stable examination. <Electronically signed by Matthew Mazariegos > 11/06/20 [id number]
== END ==
LOC: M RAD 11:04
PROVIDERS: ATTEND Physician Assistant Medical
DX: S22.08 Fracture of T11-T12 vertebra (principal); S22.000A Wedge compression fracture of unspecified thoracic vertebra, initial encounter for closed fracture; X58.XXXA Exposure to other specified factors, initial encounter; Y92.89 Other specified places as the place of occurrence of the external cause; Y93.89 Activity, other specified; Y99.8 Other external cause status; M43.25 Fusion of spine, thoracolumbar region; Z98.890 Other specified postprocedural states; Z96.7 Presence of other bone and tendon implants

== ENCOUNTER → 2020-12-15 | Outpatient (CLI) | payer MEDICARE, OTHER ==
[~2020-12-15] MED LIST changes: +ESCI10TA16 PO; -ESCI10TA2 PO
--- NOTE | 2020-12-15 16:07 | REP ---
INDICATION: FUSION OF SPINE THORACOLUMBAR. COMPARISON: Comparison radiographs November 06, 2020.. TECHNIQUE: Frontal and lateral views. FINDINGS: The patient is status post transpedicle screw and dorsal anotnette fixation of the thoracolumbar spine with bilateral transpedicle screws at T9, T10, T11, L1, L2, and L3. There is a fairly advanced wedge compression collapse deformity at T12. These findings are unchanged when compared with the 11/06/2020 study. There is slight anterior wedging at T8 just above the fused levels with approximately 40% loss of anterior vertebral body height. This may be slightly more prominent than on the prior study. Discogenic spurring is noted in the midthoracic spine. No paravertebral soft tissue mass is seen. The thoracic aorta is tortuous and there is evidence of a large hiatal hernia. IMPRESSION: Status post thoracolumbar fusion. Compression deformity T12 unchanged. Mild wedging T8 slightly more prominent. <Electronically signed by Julio Patel > 12/15/20 [id number]
--- NOTE | 2020-12-15 16:09 | REP ---
INDICATION: FUSION OF SPINE THORACOLUMBAR. COMPARISON: Comparison radiographs are from 06 November 2020.. TECHNIQUE: Standing AP and lateral views of the lumbar spine are obtained. FINDINGS: Patient is status post thoracolumbar spine fusion with transpedicle screws in place bilaterally at L1-L2 and L3 in the lumbar spine and T11 and T10 and T9 in the thoracic spine unchanged. There is wedge compression fracture deformity at T12 unchanged. There is anterior wedging at L3 which is also unchanged from the comparison study 11/06/2020. Degenerative disc disease with vacuum phenomena and some sclerosis and spur formation is seen at L4-5. Sacrum and SI joints are intact. IMPRESSION: T9 through L3 fusion hardware in place. Wedge compression deformities at T12 and L3 in the lumbar spine study unchanged. <Electronically signed by Julio Patel > 12/15/20 [id number]
== END ==
LOC: M RAD 13:48
DX: M43.25 Fusion of spine, thoracolumbar region (principal); S22.080A Wedge compression fracture of T11-T12 vertebra, initial encounter for closed fracture; S32.030A Wedge compression fracture of third lumbar vertebra, initial encounter for closed fracture; S32.82XS Multiple fractures of pelvis without disruption of pelvic ring, sequela; M54.9 Dorsalgia, unspecified; X58.XXXA Exposure to other specified factors, initial encounter; Y92.9 Unspecified place or not applicable; Y99.9 Unspecified external cause status

== ENCOUNTER → 2021-09-28 | Outpatient (CLI) | payer MEDICARE, OTHER ==
[~2021-09-28] MED LIST changes: -FOLI400T PO; +FOLI400T13 PO
--- NOTE | 2021-09-28 12:38 | REPMRS ---
Patient History The patient states she had a clinical breast exam in August 2021. No known family history of cancer. No Hormone Replacement Therapy Patient states no breast complaints today. Patient has signed MRS History Sheet. Digital Woman Screen Mammo: September 28, 2021 - Exam #: [id number] Bilateral CC and MLO view(s) were taken. Technologist: Monalisa Michel, Technologist Prior study comparison: February 23, 2019, bilateral digital woman screen mammo performed at [facility]. January 29, 2018, digital woman screen mammo performed at [facility]. FINDINGS: The breast tissue is almost entirely fat. Screening. Digital screening (2D) mammography was performed bilaterally in the CC and MLO projections. Additionally, breast tomosynthesis (3D mammography) was performed bilaterally in the CC and MLO projections. Todays exam was compared to the prior exam/exams. By history, the patient has no complaints of a palpable breast abnormality or other significant breast complaints. The Volpara volumetric breast density category is A, the breasts are almost entirely fatty. The breasts are unchanged in size and shape. There are no hodan-soft tissue densities or spiculated masses. There is no internal architectural distortion. There are no suspicious hodan-calcific clusters. Skin thickening or nipple retraction is not present. IMPRESSION: BI-RADS Category 2- Benign Findings. There is no evidence of malignant alteration of the breasts. Followup examination recommended in one year. The lifetime Tyrer-Cuzick score is 0.5% This mammogram was read with the assistance of Eddie Autrement ([employer]),an FDA approved computer aided detection system for mammography. Negative x-ray reports should not delay surgical consultation if a dominant or clinically suspicious mass is present. Not all breast cancers can be identified by mammography. Therefore, we recommend that you continue to perform regular breast self-examination and physical examination and then promptly contact your physician of any concerns or changes. Adenosis and dense breasts may obscure an underlying neoplasm. No significant changes when compared with prior studies. Assessment: BI-RADS/ACR category 2 mammogram. Benign Findings. Recommendation Routine screening mammogram of both breasts in 1 year. Electronically Signed By: Raoul Moore MD 09/28/21 [id number]
== END ==
LOC: M WHC 11:41
PROVIDERS: ATTEND Family Medicine
DX: Z12.31 Encounter for screening mammogram for malignant neoplasm of breast (principal)

== ENCOUNTER → 2022-07-01 | Outpatient (CLI) | payer MEDICARE, OTHER ==
[~2022-07-01] MED LIST changes: +OMEP-173; -OMEP-218
== END ==
LOC: M RAD 11:46
PROVIDERS: ATTEND Family Medicine
DX: R06.02 Shortness of breath (principal)

== ENCOUNTER → 2023-06-12 | Outpatient (CLI) | payer MEDICARE, OTHER | LOC: M RAD 14:14 | PROVIDERS: ATTEND Family Medicine | DX: I80.01 Phlebitis and thrombophlebitis of superficial vessels of right lower extremity (principal) ==

== ENCOUNTER → 2025-03-24 | Outpatient (CLI) | payer MEDICARE, OTHER ==
[~2025-03-24] MED LIST changes: -CYCL5TAB PO; +CYCL5TAB4 PO; -ROSU10TA6 PO; +ROSU10TA61 PO
== END ==
LOC: M RAD 15:03
PROVIDERS: ATTEND Family Medicine
DX: R06.02 Shortness of breath (principal)

== ENCOUNTER → 2025-03-30 | Outpatient (CLI) | payer MEDICARE, OTHER | LOC: M SOG 07:51 | PROVIDERS: ATTEND Orthopaedic Surgery | DX: M17.0 Bilateral primary osteoarthritis of knee (principal); M85.89 Other specified disorders of bone density and structure, multiple sites ==